=== PATIENT | female | born 1940 | race Caucasian/White ===

== ENCOUNTER 2018-07-26 13:56 | Inpatient (IN) | payer MEDICARE, MEDICAID ==
[~2018-07-26] VITALS: Ht 162.6 cm; Wt 63.0 kg
[~2018-07-26 13:56] MED LIST: ACET-868 PO; DEXT1CAP3 PO; DOCU100C36 PO; DONE10TA11 PO; FAMO-131 PO; HYDR-4384 PO; LACT1CAP7 PO; LEVO150T8 PO; MULT-213 PO; [UNRECOGNIZED DRUG - CODE] PO
--- NOTE | 2018-07-26 14:15 | NUR ---
patient [facility] [id number] from [facility] for Abnormal Labs H/H 6.3.. On room air, breathing evenly and unlabored. IV access initiated. Soft restraint ordered by MD due to patient is pulling IV line. Kept comfortable. will continue to monitor accordingly.
[2018-07-26 14:57] LABS: BASOPHILS % (AUTO) 0.6 % (0.0-2.0); EOSINOPHILS % (AUTO) 2.6 % (0.0-6.0); HEMATOCRIT 23 % (33-45); HEMOGLOBIN 7.1 g/dL (11.5-14.8); LYMPHOCYTES # (AUTO) 1.8 /CMM (0.8-4.8); MEAN CORPUSCULAR HGB CONC 31 g/dl (31.0-36.0); MEAN CORPUSCULAR VOLUME 63 fL (82-100); MONOCYTES # (AUTO) 0.7 /CMM (0.1-1.30); MONOCYTES % (AUTO) 10.5 % (2.0-12.0); NEUTROPHILS # (AUTO) 4.3 /CMM (1.8-8.9); NEUTROPHILS % (AUTO) 60.3 % (43.0-81.0); PLATELET COUNT (AUTO) 423 /CMM (150-450); RED BLOOD CELL COUNT(AUTO) 3.64 MIL/uL (4.0-5.2); WHITE BLOOD COUNT (AUTO) 7.1 K/uL (4.3-11.0)
[2018-07-26 15:10] LABS: CALCIUM, SERUM 8.3 mg/dL (8.5-10.1); CARBON DIOXIDE 27 mmol/L (21-32); CHLORIDE 107 mmol/L (98-107); GLUCOSE 123 mg/dL (74-106); POTASSIUM 3.7 mmol/L (3.5-5.1); SODIUM SERUM 141 mmol/L (136-145)
[2018-07-26 15:11] LABS: BILIRUBIN,DIRECT 0.1 mg/dL (0.0-0.2); BILIRUBIN,TOTAL 0.2 mg/dL (0.2-1.0); UREA NITROGEN, BLOOD 19 mg/dL (7-18)
[2018-07-26 15:12] LABS: ALANINE AMINOTRANSFERASE 13 U/L (12-78); ALKALINE PHOSPHATASE 56 U/L (46-116)
[2018-07-26 15:22] LABS: ASPARTATE AMINOTRANSFERASE 15 U/L (15-37); LIPASE 141 U/L (73-393); TOTAL PROTEIN, SERUM 7.9 g/dL (6.4-8.2)
[2018-07-26 16:30] LABS: BAND % (MANUAL) 1 % (0.0-5.0); EOSINOPHILS % (MANUAL) 2 % (0-4); LYMPHOCYTES % (MANUAL) 23 % (16-48); MONOCYTES % (MANUAL) 8 % (0-11.0); NEUTROPHILS % (MANUAL) 66 (42-76)
[2018-07-26 17:15] VITALS: BP 144/56
--- NOTE | 2018-07-26 17:15 | NUR ---
RN NOTES RECEIVED PT FROM ER IN ROOM 113-1, ALERT/ AGITATED AND COMBATIVE, ON RA , RESPIRATION EVEN AND UNLABORED, NO SOB NOTED, NPO AT THIS TIME R HAND IV SITE G 20 CLEAN, DRY AND INTACT, LEFT BREAST FOLD REDNESS NOTED, UNABLE TO TAKE A PICTURE DUE TO PT BEING COMBATIVE AND RESTLESS WILL ENDOSE TO TITLE INSURANCE EXAMINER NURSE FOR CONTINUITY OF CARE , SR UP X3, CALL LIGHT WITHIN EASY REACH, BED LOCKED AND IN LOWEST POSITION, CONTINUE TO MONITOR
--- NOTE | 2018-07-26 17:36 | NUR ---
report given to jai perkins for loree.
--- NOTE | 2018-07-26 17:44 | NUR ---
wheeled patient via gurney accompanied by EMT going to room 113-1 i n no apparent distress noted.
[2018-07-26 18:00] VITALS: BP 144/56
[2018-07-26] MEDS ORDERED: Z GUARD REMEDY 2 OZ OINT TP PRN (18:00)
[2018-07-26] MEDS ORDERED: ACETAMINOPHEN 325 MG TABLET PO PRN (18:00)
[2018-07-26] MEDS ORDERED: ZOLPIDEM TARTRATE 5 MG TABLET PO PRN (18:00)
[2018-07-26] MEDS ORDERED: ONDANSETRON HCL/PF 4 MG/2 ML VIAL IVP PRN (18:00)
[2018-07-26] MEDS ORDERED: HYDROCODONE/APAP 5/325MG 1 EACH TABLET PO PRN (18:00)
[2018-07-26] MEDS ORDERED: MAG HYDROX/AL HYDROX/SIMETH 30 ML UDC PO PRN (18:00)
[2018-07-26] MEDS ORDERED: MAGNESIUM HYDROXIDE 30 ML UDC PO PRN (18:00)
[2018-07-26] MEDS: IV D5/0.45 NACL 1,000 ML IV PRN (18:21)
--- NOTE | 2018-07-26 19:10 | NUR ---
MS/RN INITIAL NOTES RECEIVED PT IN BED, ALERT, APPEARS CONFUSED. ON ROOM AIR, NO SOB NOTED. WITH ONGOING IVF D5NS AT 75ML/HR INFUSING WELL ON RHAND G20 IV LINE. C/D/I. NOTED WITH RENNY SOFT WRIST RESTRAINT FOR SAFETY. SKIN INTACT AND NO COMPROMISED CIRCULATION NOTED. HOB ELEVATED. SAFETY MEASURES IN PLACED. WILL CONT TO MONITOR
[2018-07-26 20:00] VITALS: BP 138/67
[2018-07-26 20:22] LABS: IRON, SERUM 16 ug/dl (50-175); TOTAL IRON BINDING CAPACITY 309 ug/dl (250-450)
[2018-07-27 04:00] VITALS: BP 130/64
[2018-07-27 06:37] LABS: BASOPHILS % (AUTO) 0.5 % (0.0-2.0); EOSINOPHILS % (AUTO) 2.2 % (0.0-6.0); HEMATOCRIT 23 % (33-45); LYMPHOCYTES # (AUTO) 1.8 /CMM (0.8-4.8); LYMPHOCYTES % (AUTO) 29.1 % (20.0-44.0); MEAN CORPUSCULAR HGB CONC 31 g/dl (31.0-36.0); MEAN CORPUSCULAR VOLUME 64 fL (82-100); MONOCYTES # (AUTO) 0.6 /CMM (0.1-1.30); MONOCYTES % (AUTO) 9.6 % (2.0-12.0); NEUTROPHILS # (AUTO) 3.6 /CMM (1.8-8.9); NEUTROPHILS % (AUTO) 58.6 % (43.0-81.0); PLATELET COUNT (AUTO) 436 /CMM (150-450); RED BLOOD CELL COUNT(AUTO) 3.55 MIL/uL (4.0-5.2); WHITE BLOOD COUNT (AUTO) 6.1 K/uL (4.3-11.0)
[2018-07-27 06:52] LABS: CALCIUM, SERUM 8.1 mg/dL (8.5-10.1); CARBON DIOXIDE 24 mmol/L (21-32); CHLORIDE 105 mmol/L (98-107); CREATININE 0.8 mg/dL (0.6-1.3); GLUCOSE 106 mg/dL (74-106); MAGNESIUM 2.2 mg/dL (1.8-2.4); PHOSPHORUS 2.6 mg/dL (2.5-4.9); POTASSIUM 3.9 mmol/L (3.5-5.1); SODIUM SERUM 139 mmol/L (136-145); UREA NITROGEN, BLOOD 13 mg/dL (7-18)
[2018-07-27 06:58] LABS: CHOLESTEROL 123 mg/dL (<200); HDL CHOLESTEROL 41 mg/dL (40-60); LDL 78 mg/dL (0-99); THYROID STIMULATING HORMONE 1.304 uIU/mL (0.358-3.74); TRIGLYCERIDES 66 mg/dL (30-150)
--- NOTE | 2018-07-27 06:59 | NUR ---
RN NOTES PT IN STABLE CONDITION. NO ACUTE CHANGES THROUGHOUT SHIFT. NO OVERT SIGNS OF BLEEDING NOTED. ALL NEEDS ANTICIPATED. SAFETY MEASURES OBSERVED AT ALL TIMES. RECEIVED CRIT LAB H/H: 7.0/23. ENDORSED TO AM RN
--- NOTE | 2018-07-27 07:25 | NUR ---
MS RN OPENING NOTES RECEIVED PT ON BED. A/O X2, CONFUSED. ON ROOM AIR NO RESPIRATORY OR CARDIAC DISTRESS NOTED. IV ACCESS ON LEFT HAND G22 WITH D5 1/2 NS @ 75CC/HR RUNNING WELL, PATENT AND INTACT. PT ON RESTRAINS BILATERAL WRIST SOFT FOR PT SAFETY. NPO PER MD ORDER. HEAD OF BED ELEVATED, SIDE RAILS UP X4. CALL LIGHT WITHIN REACH. BED ALARM ON. WILL CONTINUE TO MONITOR PT CLOSELY.
[2018-07-27 08:00] VITALS: BP 106/67
[2018-07-27 08:38] LABS: LYMPHOCYTES % (MANUAL) 30 % (16-48); MONOCYTES % (MANUAL) 4 % (0-11.0); NEUTROPHILS % (MANUAL) 66 (42-76)
[2018-07-27] MEDS: IV D5/0.45 NACL 1,000 ML IV PRN (09:09)
[2018-07-27] MEDS: PANTOPRAZOLE 40 MG VIAL IV SCH (09:18)
[2018-07-27] MEDS ORDERED: MAGN296S44 PO (09:29)
[2018-07-27] MEDS ORDERED: DIVA125C2 PO (09:29)
[2018-07-27] MEDS ORDERED: LORA0.5T PO ×2 (09:29→09:35)
[2018-07-27] MEDS ORDERED: SERT25TA PO (09:29)
[2018-07-27] MEDS ORDERED: BISA10SU61 RC (09:29)
[2018-07-27] MEDS ORDERED: SENN-18 PO (09:29)
[2018-07-27] MEDS ORDERED: GUAI5SYR PO (09:29)
[2018-07-27] MEDS ORDERED: CHOL100062 PO (09:29)
[2018-07-27] MEDS ORDERED: ALEN70TA6 PO (09:29)
[2018-07-27] MEDS ORDERED: QUET25TA PO (09:29)
[2018-07-27] MEDS ORDERED: QUET50TA PO (09:29)
[2018-07-27] MEDS ORDERED: LEVO100T9 PO (09:29)
[2018-07-27] MEDS ORDERED: CRAN450C PO (09:29)
[2018-07-27] MEDS ORDERED: CALC-10 PO (09:29)
[2018-07-27] MEDS ORDERED: LACT1CAP89 PO (09:29)
--- NOTE | 2018-07-27 10:27 | NUR ---
WOUND CONSULT:PATIENT PRESENT ON ADMISSION REDNESS ON LT BREAST FOLD,RECOMMENDATION MADE AND DISCUSSED WITH NURSING STAFF, CURRENT ELBA SCALE 16, WILL SEE MD MARGARET IN AGREEMENT WITH PLAN OF CARE Addendum: 07/27/18 at 1033 by BRYAN WALTERS RN Amended: Links added.
[2018-07-27] MEDS ORDERED: GUAIFENESIN/D-METHORPHAN HB 5 ML UDC PO PRN (12:30)
[2018-07-27] MEDS: DIVALPROEX SODIUM 125 MG CAP.SPRINK PO SCH ×2 (13:15→17:33)
[2018-07-27] MEDS ORDERED: HALOPERIDOL LACTATE INJ 5 MG/ML VIAL IM PRN (14:00)
[2018-07-27] MEDS: SOD FERRIC GLUC 125 MG in IV NS 0.9% 100 ML IV SCH (14:56)
[2018-07-27 16:00] VITALS: BP 137/56
[2018-07-27] MEDS ORDERED: CRANBERRY FRUIT PO SCH (17:00)
[2018-07-27] MEDS: LACTOBACILLUS RHAMNOSUS GG 1 EACH CAP.SPRINK PO SCH (17:33)
[2018-07-27] MEDS: CLOTRIMAZOLE 1% 15 GM TUBE TP SCH (17:33)
[2018-07-27] MEDS: CALCIUM CARB 600MG /VIT D 1 EACH TABLET PO SCH (17:33)
[2018-07-27] MEDS: QUETIAPINE FUMARATE 25 MG TABLET PO SCH ×2 (17:33→21:02)
[2018-07-27] MEDS: LORAZEPAM 0.5 MG TABLET PO SCH ×2 (17:33→21:02)
--- NOTE | 2018-07-27 19:00 | NUR ---
MS RN NOTES PT RESTING IN BED. A/O X2, CONFUSED. ON ROOM AIR NO RESPIRATORY AND CARDIAC DISTRESS NOTED. IV ACCESS ON LEFT HAND G22 WITH D5 1/2 NS @ 75CC/HR RUNNING WELL, PATENT AND INTACT. PT ON RESTRAINS BILATERAL WRIST SOFT FOR PT SAFETY, CHECKED PT EVERY 15MINUTES. ALL MD ORDERS ATTENDED. HEAD OF BED ELEVATED, SIDE RAILS UP X4. CALL LIGHT WITHIN REACH. BED ALARM ON. ENDORSED TO TRAFFIC DIRECTOR NURSE FOR TYLER.
--- NOTE | 2018-07-27 19:26 | NUR ---
MS RN NOTES RECEIVED PT ON BED. A/O X 2, CONFUSED. ON ROOM AIR NO RESPIRATORY DISTRESS NOTED. IV ACCESS ON LEFT HAND G22 WITH D5 1/2 NS @ 75CC/HR RUNNING WELL, PATENT AND INTACT. PT ON RESTRAINS BILATERAL WRIST SOFT. HEAD OF BED ELEVATED, SIDE RAILS UP X4. CALL LIGHT WITHIN REACH. BED ALARM ON. WILL CONTINUE TO MONITOR PT CLOSELY.
[2018-07-27 20:00] VITALS: BP 107/73
[2018-07-27 20:05] VITALS: BP 107/73
--- NOTE | 2018-07-27 21:03 | NUR ---
MS RN NOTES PT REFUSING MEDS, PT CONFUSED. PO MEDS NOT GIVEN, WILL MONITOR PT CLOSELY.
[2018-07-28] MEDS: IV D5/0.45 NACL 1,000 ML IV PRN ×2 (01:53→17:15)
[2018-07-28 04:00] VITALS: BP 112/77
[2018-07-28 04:30] VITALS: BP 112/77
[2018-07-28 06:58] LABS: BASOPHILS % (AUTO) 0.5 % (0.0-2.0); EOSINOPHILS % (AUTO) 2.7 % (0.0-6.0); HEMATOCRIT 24 % (33-45); HEMOGLOBIN 7.3 g/dL (11.5-14.8); LYMPHOCYTES # (AUTO) 1.8 /CMM (0.8-4.8); LYMPHOCYTES % (AUTO) 28.7 % (20.0-44.0); MEAN CORPUSCULAR HGB CONC 31 g/dl (31.0-36.0); MEAN CORPUSCULAR VOLUME 63 fL (82-100); MONOCYTES # (AUTO) 0.5 /CMM (0.1-1.30); MONOCYTES % (AUTO) 8.9 % (2.0-12.0); NEUTROPHILS # (AUTO) 3.6 /CMM (1.8-8.9); NEUTROPHILS % (AUTO) 59.2 % (43.0-81.0); PLATELET COUNT (AUTO) 478 /CMM (150-450); RED BLOOD CELL COUNT(AUTO) 3.76 MIL/uL (4.0-5.2); WHITE BLOOD COUNT (AUTO) 6.1 K/uL (4.3-11.0)
--- NOTE | 2018-07-28 07:00 | NUR ---
MS RN INITIAL NOTES RECEIVED PT IN BED, CONFUSED. ON RA O2 SAT 97%. L HAND IV SITE #22 INTACT INFUSING D5 1/2 NS AT 75ML/HR. NO S/SX OF INFECTION NOTED. BILATERAL SOFT WRIST RESTRAINTS IN PLACE. BED IN LOCKED/LOWEST POSITION. CALL LIGHT IN REACH. WILL CONT TO MONITOR.
[2018-07-28 07:13] LABS: CALCIUM, SERUM 8.1 mg/dL (8.5-10.1); CARBON DIOXIDE 23 mmol/L (21-32); CHLORIDE 108 mmol/L (98-107); CREATININE 0.8 mg/dL (0.6-1.3); GLUCOSE 116 mg/dL (74-106); MAGNESIUM 2.3 mg/dL (1.8-2.4); PHOSPHORUS 2.8 mg/dL (2.5-4.9); POTASSIUM 3.8 mmol/L (3.5-5.1); SODIUM SERUM 142 mmol/L (136-145); UREA NITROGEN, BLOOD 9 mg/dL (7-18)
--- NOTE | 2018-07-28 07:27 | NUR ---
MS RN NOTES NO ACUTE CHANGES NOTED DURING THE SHIFT. NO AGITATION NOTED. WILL ENDORSE TO THE AM NURSE FOR CONTINUITY OF CARE.
[2018-07-28 08:00] VITALS: BP 139/76
[2018-07-28] MEDS: SERTRALINE HCL 25 MG TABLET PO SCH (08:06)
[2018-07-28] MEDS: LACTOBACILLUS RHAMNOSUS GG 1 EACH CAP.SPRINK PO SCH ×2 (08:06→16:37)
[2018-07-28] MEDS: LORAZEPAM 0.5 MG TABLET PO SCH ×3 (08:07→21:42)
[2018-07-28] MEDS: MULTIVIT W/MINERALS 1 TAB TABLET PO SCH (08:07)
[2018-07-28] MEDS: CHOLECALCIFEROL 1,000 UNIT TABLET (VIT D3) PO SCH (08:07)
[2018-07-28] MEDS: DIVALPROEX SODIUM 125 MG CAP.SPRINK PO SCH ×3 (08:07→16:37)
[2018-07-28] MEDS: QUETIAPINE FUMARATE 25 MG TABLET PO SCH ×3 (08:07→21:41)
[2018-07-28] MEDS: PANTOPRAZOLE 40 MG VIAL IV SCH (08:07)
[2018-07-28] MEDS: LEVOTHYROXINE SODIUM 100 MCG TABLET PO SCH (08:07)
[2018-07-28] MEDS: CALCIUM CARB 600MG /VIT D 1 EACH TABLET PO SCH ×2 (08:07→16:37)
[2018-07-28 08:38] LABS: EOSINOPHILS % (MANUAL) 1 % (0-4); LYMPHOCYTES % (MANUAL) 29 % (16-48); MONOCYTES % (MANUAL) 9 % (0-11.0); NEUTROPHILS % (MANUAL) 61 (42-76)
[2018-07-28] MEDS: CLOTRIMAZOLE 1% 15 GM TUBE TP SCH ×2 (08:56→16:38)
[2018-07-28] MEDS: SOD FERRIC GLUC 125 MG in IV NS 0.9% 100 ML IV SCH (14:33)
[2018-07-28 16:00] VITALS: BP 134/62
--- NOTE | 2018-07-28 18:38 | NUR ---
MS RN NOTES PT'S SON, TED, REQUESTS FOR PT TO BE TRANSFERRED TO [facility] WHEN DISCHARGED.
--- NOTE | 2018-07-28 19:00 | NUR ---
MS RN NOTES REPORTED TO PM NURSE FOR TYLER. PT IN BED, RESTING WITH NO S/SX OF DISTRESS. ALL NEEDS ATTENDED TO.
[2018-07-28 20:00] VITALS: BP 126/54
[2018-07-29] VITALS (11 sets, daily range): BP systolic 107–139; BP diastolic 51–81
--- NOTE | 2018-07-29 07:01 | NUR ---
RN CLOSING NOTES NO ACUTE CHANGES NOTED DURING THE SHIFT. NO AGITATION NOTED. WILL ENDORSE TO THE AM NURSE FOR CONTINUITY OF CARE.
[2018-07-29 07:28] LABS: BASOPHILS # (AUTO) 0.1 /CMM (0.0-0.2); BASOPHILS % (AUTO) 0.9 % (0.0-2.0); EOSINOPHILS % (AUTO) 3.2 % (0.0-6.0); HEMATOCRIT 23 % (33-45); LYMPHOCYTES # (AUTO) 1.9 /CMM (0.8-4.8); LYMPHOCYTES % (AUTO) 29.4 % (20.0-44.0); MEAN CORPUSCULAR HGB CONC 30 g/dl (31.0-36.0); MEAN CORPUSCULAR VOLUME 64 fL (82-100); MONOCYTES # (AUTO) 0.5 /CMM (0.1-1.30); NEUTROPHILS # (AUTO) 3.7 /CMM (1.8-8.9); NEUTROPHILS % (AUTO) 58.5 % (43.0-81.0); PLATELET COUNT (AUTO) 431 /CMM (150-450); WHITE BLOOD COUNT (AUTO) 6.3 K/uL (4.3-11.0)
[2018-07-29] MEDS ORDERED: ALENDRONATE 70 MG TABLET PO SCH (07:30)
[2018-07-29 07:33] LABS: HEMOGLOBIN 6.8 g/dL (11.5-14.8)
[2018-07-29 07:39] LABS: CALCIUM, SERUM 8.3 mg/dL (8.5-10.1); CARBON DIOXIDE 22 mmol/L (21-32); CHLORIDE 111 mmol/L (98-107); CREATININE 0.9 mg/dL (0.6-1.3); GLUCOSE 106 mg/dL (74-106); MAGNESIUM 2.4 mg/dL (1.8-2.4); PHOSPHORUS 3.5 mg/dL (2.5-4.9); POTASSIUM 3.4 mmol/L (3.5-5.1); SODIUM SERUM 144 mmol/L (136-145); UREA NITROGEN, BLOOD 12 mg/dL (7-18)
--- NOTE | 2018-07-29 08:15 | NUR ---
MS RN NOTES PAGED DR. MILLARD FOR PT'S ABNORMAL LAB HGB 6.8. AWAITING FOR RESPONSE.
[2018-07-29] MEDS: LEVOTHYROXINE SODIUM 100 MCG TABLET PO SCH (08:34)
[2018-07-29] MEDS: SERTRALINE HCL 25 MG TABLET PO SCH (08:45)
[2018-07-29] MEDS: PANTOPRAZOLE 40 MG VIAL IV SCH (08:45)
[2018-07-29] MEDS: DIVALPROEX SODIUM 125 MG CAP.SPRINK PO SCH ×3 (08:45→17:23)
[2018-07-29 08:47] LABS: LYMPHOCYTES % (MANUAL) 28 % (16-48); MONOCYTES % (MANUAL) 6 % (0-11.0); NEUTROPHILS % (MANUAL) 66 (42-76)
[2018-07-29] MEDS: CHOLECALCIFEROL 1,000 UNIT TABLET (VIT D3) PO SCH (08:49)
[2018-07-29] MEDS: LACTOBACILLUS RHAMNOSUS GG 1 EACH CAP.SPRINK PO SCH ×2 (08:49→17:23)
[2018-07-29] MEDS: MULTIVIT W/MINERALS 1 TAB TABLET PO SCH (08:49)
[2018-07-29] MEDS: QUETIAPINE FUMARATE 25 MG TABLET PO SCH ×3 (08:50→21:51)
[2018-07-29] MEDS: CALCIUM CARB 600MG /VIT D 1 EACH TABLET PO SCH ×2 (09:01→17:23)
[2018-07-29] MEDS: LORAZEPAM 0.5 MG TABLET PO SCH ×3 (09:02→21:50)
[2018-07-29] MEDS: CLOTRIMAZOLE 1% 15 GM TUBE TP SCH ×2 (09:03→17:23)
[2018-07-29 09:12] LABS: OCCULT BLOOD STOOL NEGATIVE (NEGATIVE)
[2018-07-29] MEDS ORDERED: POTASSIUM CHLORIDE 20 MEQ TAB.PRT.SR PO SCH ×2 (10:30→14:00)
[2018-07-29] MEDS: SOD FERRIC GLUC 125 MG in IV NS 0.9% 100 ML IV SCH (14:37)
--- NOTE | 2018-07-29 19:05 | NUR ---
RN CLOSING NOTES PT IN BED, CONFUSED. ON RA O2 SAT 97%. IV SITES INTACT INFUSING D5 1/2 NS AT 75ML/HR. NO S/SX OF INFECTION NOTED. BILATERAL SOFT WRIST RESTRAINTS IN PLACE. BED IN LOCKED/LOWEST POSITION. CALL LIGHT IN REACH. ALL MD ORDERS ATTENDED. ALL NEEDS MET. ENDORSED TO [employer] SPECIAL AGENT NURSE FOR TYLER. Addendum: 07/29/18 at 2020 by SHARON VERDIN RN TURNED AND REPOSITIONED Q2H. CHECKED PT EVERY 15 MINUTES.
--- NOTE | 2018-07-29 20:00 | NUR ---
RN/MS NOTES: RECEIVED PT. IN BED ALERT TO SELF. VERBALLY RESPONSIVE. NO FACIAL GRIMACES OR MOANING NOTED. W/ RENNY. SOFT WRIST RESTRAINTS ON. INCONTINENT OF B/B. BED ALARM ON. HAS HL G 20 PATENT AND INTACT W/ IVF GOING W/ NO S/S OF INFECTION/INFILTRATION NOTED. HAS A RT HAND G 22 PATENT AND INTACT W/ NO S/S OF INFECTION NOTED. WILL CONTINUE TO MONITOR.
[2018-07-29] MEDS: IV D5/0.45 NACL 1,000 ML IV PRN (22:46)
[2018-07-30 04:00] VITALS: BP 140/82
[2018-07-30 08:00] VITALS: BP 129/51
[2018-07-30 08:16] LABS: BASOPHILS % (AUTO) 0.4 % (0.0-2.0); EOSINOPHILS % (AUTO) 4.1 % (0.0-6.0); HEMATOCRIT 27 % (33-45); HEMOGLOBIN 8.7 g/dL (11.5-14.8); LYMPHOCYTES # (AUTO) 1.9 /CMM (0.8-4.8); LYMPHOCYTES % (AUTO) 22.7 % (20.0-44.0); MEAN CORPUSCULAR HGB CONC 32 g/dl (31.0-36.0); MEAN CORPUSCULAR VOLUME 67 fL (82-100); MONOCYTES # (AUTO) 0.5 /CMM (0.1-1.30); MONOCYTES % (AUTO) 6.4 % (2.0-12.0); NEUTROPHILS # (AUTO) 5.6 /CMM (1.8-8.9); NEUTROPHILS % (AUTO) 66.4 % (43.0-81.0); PLATELET COUNT (AUTO) 452 /CMM (150-450); RED BLOOD CELL COUNT(AUTO) 4.11 MIL/uL (4.0-5.2); WHITE BLOOD COUNT (AUTO) 8.4 K/uL (4.3-11.0)
[2018-07-30 08:27] LABS: CALCIUM, SERUM 8.6 mg/dL (8.5-10.1); CARBON DIOXIDE 19 mmol/L (21-32); CHLORIDE 112 mmol/L (98-107); CREATININE 0.8 mg/dL (0.6-1.3); GLUCOSE 95 mg/dL (74-106); MAGNESIUM 2.2 mg/dL (1.8-2.4); PHOSPHORUS 3.4 mg/dL (2.5-4.9); POTASSIUM 3.5 mmol/L (3.5-5.1); SODIUM SERUM 146 mmol/L (136-145); UREA NITROGEN, BLOOD 12 mg/dL (7-18)
[2018-07-30] MEDS: LACTOBACILLUS RHAMNOSUS GG 1 EACH CAP.SPRINK PO SCH ×2 (08:44→16:53)
[2018-07-30] MEDS: CHOLECALCIFEROL 1,000 UNIT TABLET (VIT D3) PO SCH (08:44)
[2018-07-30] MEDS: LEVOTHYROXINE SODIUM 100 MCG TABLET PO SCH (08:44)
[2018-07-30] MEDS: MULTIVIT W/MINERALS 1 TAB TABLET PO SCH (08:44)
[2018-07-30] MEDS: DIVALPROEX SODIUM 125 MG CAP.SPRINK PO SCH ×3 (08:44→16:53)
[2018-07-30] MEDS: LORAZEPAM 0.5 MG TABLET PO SCH ×3 (08:44→23:07)
[2018-07-30 08:45] LABS: BAND % (MANUAL) 2 % (0.0-5.0); EOSINOPHILS % (MANUAL) 1 % (0-4); LYMPHOCYTES % (MANUAL) 14 % (16-48); MONOCYTES % (MANUAL) 8 % (0-11.0); NEUTROPHILS % (MANUAL) 75 (42-76)
[2018-07-30] MEDS: CALCIUM CARB 600MG /VIT D 1 EACH TABLET PO SCH ×2 (08:47→16:53)
[2018-07-30] MEDS: PANTOPRAZOLE 40 MG VIAL IV SCH (08:47)
[2018-07-30] MEDS: CLOTRIMAZOLE 1% 15 GM TUBE TP SCH ×2 (08:48→16:54)
[2018-07-30] MEDS: QUETIAPINE FUMARATE 25 MG TABLET PO SCH ×4 (08:48→23:07)
[2018-07-30] MEDS: SERTRALINE HCL 25 MG TABLET PO SCH (08:48)
--- NOTE | 2018-07-30 12:25 | NUR ---
RN NOTE: RECEIVED AN ORDER FROM DR. DIXON REGARDING A PSYCH EVALUATION FOR THE PATIENT. ORDER, NOTED AND CARRIED OUT. PRIMARY NURSE TED WAS INFORMED. ORDER AND FACE SHEET WAS FAXED TO [employer] FOR THE ROUNDING PSYCHIATRIC ORDER.
[2018-07-30] MEDS: SOD FERRIC GLUC 125 MG in IV NS 0.9% 100 ML IV SCH (15:58)
[2018-07-30 16:00] VITALS: BP 139/68
[2018-07-30 16:17] VITALS: BP 139/68
--- NOTE | 2018-07-30 18:19 | NUR ---
CLOSING NO ACUTE CHANGES NOTED DURING THE SHIFT. NO AGITATION NOTED. WILL ENDORSE TO THE AM NURSE FOR CONTINUITY OF CARE. PT SEEN BY PSYCHIATRIST NEW MEDS ORDERED.
[2018-07-30 20:00] VITALS: BP 112/70
--- NOTE | 2018-07-31 01:12 | NUR ---
KAIDEN RN INITIAL NOTES: RECEIVED PT. IN BED SLEEPING EASILY AROUSAL , ALERT TO SELF. VERBALLY RESPONSIVE. NO FACIAL GRIMACES OR MOANING NOTED. W/ RENNY. SOFT WRIST RESTRAINTS ON. INCONTINENT OF B/B. BED ALARM ON.RT HAND G 22 IV LINE IS PATENT AND INTACT WITH IVF ORDERED NO S/S OF INFECTION NOTED. WILL CONTINUE TO MONITOR PATIENT CLOSELY.
[2018-07-31] MEDS: IV D5/0.45 NACL 1,000 ML IV PRN (03:28)
[2018-07-31 04:00] VITALS: BP 119/59
[2018-07-31 08:00] VITALS: BP 117/59
--- NOTE | 2018-07-31 08:00 | NUR ---
MED SURG PT- AM NOTES RECIEVED PT COMFORTABLE/CONFUSED LOC x1 , RIGHT HAND 22 GAUGE SITE CLEAR. D5 1/2 W RUNNING AT 75 ML/HR. NO S/S OF INFECTION. VITALS STABLE WILL CONTINUE TO MONITER.
[2018-07-31] MEDS: LACTOBACILLUS RHAMNOSUS GG 1 EACH CAP.SPRINK PO SCH ×2 (08:58→17:31)
[2018-07-31] MEDS: DIVALPROEX SODIUM 125 MG CAP.SPRINK PO SCH ×3 (08:58→17:31)
[2018-07-31] MEDS: LEVOTHYROXINE SODIUM 100 MCG TABLET PO SCH (08:58)
[2018-07-31] MEDS: PANTOPRAZOLE 40 MG VIAL IV SCH (08:58)
[2018-07-31] MEDS: MULTIVIT W/MINERALS 1 TAB TABLET PO SCH (08:58)
[2018-07-31] MEDS: LORAZEPAM 0.5 MG TABLET PO SCH ×2 (08:59→17:31)
[2018-07-31] MEDS: CHOLECALCIFEROL 1,000 UNIT TABLET (VIT D3) PO SCH (08:59)
[2018-07-31] MEDS: QUETIAPINE FUMARATE 25 MG TABLET PO SCH ×2 (08:59→17:31)
[2018-07-31] MEDS: CALCIUM CARB 600MG /VIT D 1 EACH TABLET PO SCH ×2 (08:59→17:31)
[2018-07-31] MEDS: CLOTRIMAZOLE 1% 15 GM TUBE TP SCH ×2 (09:00→17:32)
[2018-07-31 13:25] LABS: BASOPHILS % (AUTO) 0.5 % (0.0-2.0); EOSINOPHILS % (AUTO) 3.5 % (0.0-6.0); HEMATOCRIT 28 % (33-45); HEMOGLOBIN 8.7 g/dL (11.5-14.8); LYMPHOCYTES # (AUTO) 1.9 /CMM (0.8-4.8); LYMPHOCYTES % (AUTO) 21.5 % (20.0-44.0); MEAN CORPUSCULAR HGB CONC 31 g/dl (31.0-36.0); MEAN CORPUSCULAR VOLUME 69 fL (82-100); MONOCYTES # (AUTO) 0.7 /CMM (0.1-1.30); MONOCYTES % (AUTO) 8.2 % (2.0-12.0); NEUTROPHILS # (AUTO) 5.8 /CMM (1.8-8.9); NEUTROPHILS % (AUTO) 66.3 % (43.0-81.0); PLATELET COUNT (AUTO) 429 /CMM (150-450); RED BLOOD CELL COUNT(AUTO) 4.05 MIL/uL (4.0-5.2); WHITE BLOOD COUNT (AUTO) 8.7 K/uL (4.3-11.0)
[2018-07-31 13:30] LABS: CALCIUM, SERUM 8.3 mg/dL (8.5-10.1); CARBON DIOXIDE 20 mmol/L (21-32); CHLORIDE 110 mmol/L (98-107); CREATININE 0.9 mg/dL (0.6-1.3); GLUCOSE 113 mg/dL (74-106); POTASSIUM 3.4 mmol/L (3.5-5.1); SODIUM SERUM 139 mmol/L (136-145); UREA NITROGEN, BLOOD 13 mg/dL (7-18)
[2018-07-31 13:48] LABS: EOSINOPHILS % (MANUAL) 4 % (0-4); LYMPHOCYTES % (MANUAL) 15 % (16-48); MONOCYTES % (MANUAL) 4 % (0-11.0); NEUTROPHILS % (MANUAL) 77 (42-76)
[2018-07-31] MEDS ORDERED: PANT40TA2 PO (14:14)
[2018-07-31] MEDS ORDERED: FERR325T23 PO (14:21)
[2018-07-31] MEDS: POTASSIUM CL. PREMIX PERIPHER. 50 ML IV SCH ×2 (14:50→16:00)
[2018-07-31 16:00] VITALS: BP 114/45
[2018-07-31] MEDS: SOD FERRIC GLUC 125 MG in IV NS 0.9% 100 ML IV SCH (17:19)
--- NOTE | 2018-07-31 18:51 | NUR ---
MS1/RN REPORT TO SNF REPORT GIVEN TO CHARGE NURSE MARY BETH MTZ FOR PT TO DISCHARGE TONIGHT.
--- NOTE | 2018-07-31 19:42 | NUR ---
MS1/COST CLERK TO SNF REPORT AND DISCHARGE DOCUMENTS GIVEN TO TRANSPORT PERSONNEL. IV SITE REMOVED, PRESSURE DRESSING APPLIED, PERSONAL BELONGINGS RETURNED TO PT, INVENTORY LOG SIGNED OFF. ID BANDS REMOVED. PT LEFT MS1 UNIT VIA GURNEY IN STABLE CONDITION.
== END 2018-07-31 20:11 | DRG 811 ==
LOC: ER 13:56 → MEDSG1 16:39
PROVIDERS: ADMIT Student in an Organized Health Care Education/Training Program; ATTEND Nurse Practitioner Acute Care
PROC: 30233N1 Transfusion of Nonautologous Red Blood Cells into Peripheral Vein, Percutaneous Approach (ICD-10-PCS; principal; 2018-07-29)
DX: D50.9 Iron deficiency anemia, unspecified (principal); N17.0 Acute kidney failure with tubular necrosis; E44.0 Moderate protein-calorie malnutrition; E87.0 Hyperosmolality and hypernatremia; F02.81 Dementia in other diseases classified elsewhere, unspecified severity, with behavioral disturbance; I10 Essential (primary) hypertension; E88.09 Other disorders of plasma-protein metabolism, not elsewhere classified; D63.8 Anemia in other chronic diseases classified elsewhere; G30.9 Alzheimer's disease, unspecified; E87.6 Hypokalemia; E03.9 Hypothyroidism, unspecified; K21.9 Gastro-esophageal reflux disease without esophagitis; Z98.1 Arthrodesis status; Z68.23 Body mass index [BMI] 23.0-23.9, adult; F29 Unspecified psychosis not due to a substance or known physiological condition
CPT/HCPCS: 36415; 71045-TC; 80048-TC; 80061-TC; 80076-TC; 80164-TC; 82272-TC; 82728-TC; 83540-TC; 83690-TC; 83735-TC; 84100-TC; 84443-TC; 84484-TC; 85025-TC; 85730-TC; 86850-TC; 86921-TC; 87081-TC; C9113; G0378; J1630; J2916; J3480; J3490; J7030; J7050; P9016-BL

== ENCOUNTER 2019-03-10 17:58 | Inpatient (IN) | payer MEDICARE, MEDICAID ==
[~2019-03-10] VITALS: Ht 165.1 cm; Wt 59.4 kg
[~2019-03-10 17:58] MED LIST changes: +ALEN70TA6 PO; +BISA10SU61 RC; +CALC-10 PO; +CHOL100062 PO; +CRAN450C PO; -DEXT1CAP3 PO; +DIVA125C2 PO; -DONE10TA11 PO; -FAMO-131 PO; +FERR325T23 PO; +GUAI5SYR PO; -HYDR-4384 PO; -LACT1CAP7 PO; +LACT1CAP89 PO; +LEVO100T9 PO; -LEVO150T8 PO; +LORA0.5T PO; +MAGN296S44 PO; +PANT40TA2 PO; +QUET25TA PO; +QUET50TA PO; +SENN-18 PO; +SERT25TA PO; -[UNRECOGNIZED DRUG - CODE] PO
--- NOTE | 2019-03-10 18:15 | NUR ---
[facility] from [facility] for "general weakness and decline in functional status", PT AOX0, VERBAL, INCOHERENT, -SOB, NAD NOTED ,VSS ,PENDING MD CURRIE
[2019-03-10] MEDS ORDERED: CALC-7 PO (18:22)
[2019-03-10] MEDS ORDERED: FERR325T6 PO (18:22)
[2019-03-10] MEDS ORDERED: PANT40TA2 PO (18:22)
[2019-03-10] MEDS ORDERED: ASCO500T9 PO (18:22)
[2019-03-10] MEDS ORDERED: ONDANSETRON HCL/PF 4 MG/2 ML VIAL IVP PRN (18:30)
[2019-03-10] MEDS ORDERED: MAGNESIUM HYDROXIDE 30 ML UDC PO PRN (18:30)
[2019-03-10] MEDS ORDERED: IV NS 0.9% 500 ML BAG IV ONE (18:30)
[2019-03-10] MEDS ORDERED: ACETAMINOPHEN 325 MG TABLET PO PRN (18:30)
[2019-03-10] MEDS ORDERED: MAG HYDROX/AL HYDROX/SIMETH 30 ML UDC PO PRN (18:30)
[2019-03-10] MEDS ORDERED: HYDROCODONE/APAP 5/325MG 1 EACH TABLET PO PRN (18:30)
[2019-03-10] MEDS ORDERED: Z GUARD REMEDY 2 OZ OINT TP PRN (18:30)
--- NOTE | 2019-03-10 18:36 | NUR ---
CALLED FOR MS BED AND TURNED IN MOVE SHEET
[2019-03-10 18:44] LABS: BASOPHILS # (AUTO) 0.1 /CMM (0.0-0.2); BASOPHILS % (AUTO) 0.6 % (0.0-2.0); EOSINOPHILS % (AUTO) 2.2 % (0.0-6.0); HEMATOCRIT 37 % (33-45); LYMPHOCYTES # (AUTO) 2.8 /CMM (0.8-4.8); LYMPHOCYTES % (AUTO) 25.7 % (20.0-44.0); MEAN CORPUSCULAR HGB CONC 33 g/dl (31.0-36.0); MEAN CORPUSCULAR VOLUME 87 fL (82-100); MONOCYTES # (AUTO) 0.9 /CMM (0.1-1.30); MONOCYTES % (AUTO) 8.4 % (2.0-12.0); NEUTROPHILS % (AUTO) 63.1 % (43.0-81.0); PLATELET COUNT (AUTO) 268 /CMM (150-450); RED BLOOD CELL COUNT(AUTO) 4.19 MIL/uL (4.0-5.2); WHITE BLOOD COUNT (AUTO) 11.1 K/uL (4.3-11.0)
[2019-03-10] MEDS: CEFTRIAXONE 1 G in IV D5W 50 ML IV SCH (19:00)
--- NOTE | 2019-03-10 19:05 | NUR ---
URINE COLLECTED AND SENT TO LAB
--- NOTE | 2019-03-10 19:10 | NUR ---
ATTEMPTED TO GET EKG MULTIPLE TIMES WITH-OUT SUCCESS DUE TO PT BEING CONFUSED, AND PT CONSTANTLY MOVING ALL EXTREMITIES. INFO DR CRENSHAW, HE STATED THAT IT WAS OK.
[2019-03-10 19:20] LABS: ALANINE AMINOTRANSFERASE 18 U/L (12-78); ALBUMIN 3.8 g/dL (3.4-5.0); ALKALINE PHOSPHATASE 77 U/L (46-116); ASPARTATE AMINOTRANSFERASE 19 U/L (15-37); BILIRUBIN,TOTAL 0.2 mg/dL (0.2-1.0); CALCIUM, SERUM 9.4 mg/dL (8.5-10.1); CARBON DIOXIDE 25 mmol/L (21-32); CHLORIDE 105 mmol/L (98-107); GLUCOSE 112 mg/dL (74-106); POTASSIUM 4.5 mmol/L (3.5-5.1); SODIUM SERUM 140 mmol/L (136-145); TOTAL PROTEIN, SERUM 8.3 g/dL (6.4-8.2); UREA NITROGEN, BLOOD 26 mg/dL (7-18)
--- NOTE | 2019-03-10 19:23 | NUR ---
GOT BED 119-1
[2019-03-10 19:38] LABS: BILIRUBIN,URINE Negative (NEGATIVE); BLOOD, URINE Trace-intact Ery/uL (NEGATIVE); COLOR,URINE Yellow (YELLOW); KETONES,URINE Negative (NEGATIVE); LEUKOCYTE ESTERASE ,URINE Small (NEGATIVE); NITRITE, URINE Positive (NEGATIVE); PROTEIN,URINE Trace mg/dl (NEGATIVE); UGLUCOSE Negative (NEGATIVE); UROBILINOGEN,URINE 0.2 EU/dL (0.2)
[2019-03-10 19:41] LABS: APPEARANCE,URINE SLIGHTLY CLOUDY (CLEAR); BACTERIA,URINE Many /HPF (None Seen); WBC,URINE 81-100 /HPF (0-3)
[2019-03-10 19:42] LABS: SQUAMOUS EPITHELIAL CELL,UR Few /HPF (None Seen); URINE AMORPHOUS PHOSPHATES Few /HPF (None Seen)
--- NOTE | 2019-03-10 19:50 | NUR ---
report given to renea perkins for loree
[2019-03-10] MEDS ORDERED: CEFTRIAXONE 1GM BAG (ER ONLY) 50 ML IV ONE ×2 (20:00→20:45)
--- NOTE | 2019-03-10 20:53 | NUR ---
TRANSPORTED TO [address] [place] [address]
[2019-03-10 21:00] VITALS: BP 122/49
--- NOTE | 2019-03-10 21:00 | NUR ---
MS/RN NOTES RECEIVED FROM ER ON A GURNEY ACCOMPANIED BY ER ATTENDANT, AWAKE, CONFUSED, UNABLE TO STATE NAME AND DATE, REQUIE EXTENSIVE ASSISTANCE FOR SAFETY. BELONGINGS CHECK, SKIN CHECK WITH SKIN ISSUES. PATIENT INCONTINENT WITH DX OF UTI. ARRIVED AND WAS BROUGHT DUE TO WEAKNESS DECLINE IN FUNCTIONAL STATE. MD RUST ADMITTING MD. WITH POLST CLARIFICATION AND F/U IN AM , VITAL SIGNS CHECK AND IV FLUID INFUSING ON LEFT HAND IV. PATIENT ABLE TO MOVE AND REPOSITION WITH ASSISTANCE, SAFETY MEASURES PROVIDED BY ROOM ROUNDS AND KEPT SKIN INTACT AND DRY. MEDICATIONS REPORTED, WILL MONITOR. RESPIRATIONS EVEN AND UNLABORED. SON WITH ADVANCE DIRECTIVE,
[2019-03-10] MEDS: IV NS 0.9% 1,000 ML IV SCH (22:07)
[2019-03-11] MEDS: ACIDOPHILUS/BULGARICUS 1 EACH TAB.CHEW PO SCH ×3 (06:30→16:24)
--- NOTE | 2019-03-11 06:36 | NUR ---
MS/RN NOTES PATIENT ASLEEP, ALTERED COGNITION AND UNABLE TO FOLLOW COMMANDS, REFUSE TO TAKE MEDICATION BY MOUTH AT THIS TIME. WILL ENDORSE TO AM RN FOR TYLER. PATIENT REQUIRE MONITORING FOR SAFETY, BED ALARM ON, FALL PREVENTION, BED ALARM ON. ROUNDING. KEPT SKIN INTACT AND DRY, ON IV FLUID INFUSING FOR HYDRATION. RESPIRATIONS EVEN AND UNLABORED, UNABLE TO MAKE GOOD EYE CONTACT. BED LOCKED, CALL LIGHTS WITHIN REACH.
[2019-03-11 06:42] LABS: BASOPHILS # (AUTO) 0.1 /CMM (0.0-0.2); BASOPHILS % (AUTO) 0.8 % (0.0-2.0); EOSINOPHILS % (AUTO) 2.9 % (0.0-6.0); HEMATOCRIT 37 % (33-45); HEMOGLOBIN 12.3 g/dL (11.5-14.8); LYMPHOCYTES # (AUTO) 2.2 /CMM (0.8-4.8); LYMPHOCYTES % (AUTO) 30.1 % (20.0-44.0); MEAN CORPUSCULAR HGB CONC 33 g/dl (31.0-36.0); MEAN CORPUSCULAR VOLUME 88 fL (82-100); MONOCYTES # (AUTO) 0.6 /CMM (0.1-1.30); MONOCYTES % (AUTO) 8.2 % (2.0-12.0); NEUTROPHILS # (AUTO) 4.2 /CMM (1.8-8.9); PLATELET COUNT (AUTO) 235 /CMM (150-450); RED BLOOD CELL COUNT(AUTO) 4.19 MIL/uL (4.0-5.2); WHITE BLOOD COUNT (AUTO) 7.3 K/uL (4.3-11.0)
[2019-03-11 07:17] LABS: CALCIUM, SERUM 8.9 mg/dL (8.5-10.1); CREATININE 0.9 mg/dL (0.6-1.3); MAGNESIUM 2.2 mg/dL (1.8-2.4); PHOSPHORUS 3.5 mg/dL (2.5-4.9); POTASSIUM 4.8 mmol/L (3.5-5.1)
[2019-03-11 08:00] VITALS: BP 100/78
--- NOTE | 2019-03-11 08:00 | NUR ---
MS RN OPENING NOTES Received Patient awake and resting in bed. A/O x 1. VS stable with no acute distress. Breathing even and unlabored on room air with no respiratory distress. No signs and symptoms of pain. 20g PIV on left hand clean, intact, patent and flushing well with NS running at 75ml/hr. All needs rendered at this time. Call light within reach. Will continue to monitor.
[2019-03-11] MEDS ORDERED: CRANBERRY FRUIT PO SCH (09:00)
[2019-03-11] MEDS ORDERED: CALCIUM CARB 250MG /VITAMIN D 1 UDTAB PO SCH (09:00)
[2019-03-11] MEDS: LEVOTHYROXINE SODIUM 100 MCG TABLET PO SCH (09:19)
[2019-03-11] MEDS: LORAZEPAM 0.5 MG TABLET PO SCH ×2 (09:19→16:24)
[2019-03-11] MEDS: DOCUSATE SODIUM 100 MG CAPSULE PO SCH ×2 (09:19→16:24)
[2019-03-11] MEDS: DIVALPROEX SODIUM 125 MG CAP.SPRINK PO SCH ×3 (09:19→16:24)
[2019-03-11] MEDS: FERROUS SULFATE (325 MG) 325 MG/TAB TABLET PO SCH (09:19)
[2019-03-11] MEDS: PANTOPRAZOLE 40 MG TABLET.DR PO SCH (09:19)
[2019-03-11] MEDS: CHOLECALCIFEROL 1,000 UNIT TABLET (VIT D3) PO SCH (09:20)
[2019-03-11] MEDS: SENNOSIDES 8.6 MG TABLET PO SCH ×2 (09:20→16:24)
[2019-03-11] MEDS: QUETIAPINE FUMARATE 25 MG TABLET PO SCH ×3 (09:20→16:24)
[2019-03-11] MEDS: ASCORBIC ACID 500 MG TABLET PO SCH (09:20)
[2019-03-11] MEDS: SERTRALINE HCL 25 MG TABLET PO SCH (09:20)
[2019-03-11] MEDS: MULTIVIT W/MINERALS 1 TAB TABLET PO SCH (09:20)
[2019-03-11] MEDS: CALCIUM CARB 600MG /VIT D 1 EACH TABLET PO SCH (12:16)
[2019-03-11] MEDS: IV NS 0.9% 1,000 ML IV SCH (12:16)
[2019-03-11 16:00] VITALS: BP 120/60
--- NOTE | 2019-03-11 18:00 | NUR ---
MS RN NOTES Called Guzman Mendoza [facility] to request fax of updated POLST. Per Elo, fax machine is not working so unable to obtain updated POLST. Will endorse to oncoming shifts to follow up.
--- NOTE | 2019-03-11 18:15 | NUR ---
MS RN NOTES 20g PIV on left hand infiltrated. Removed PIV and placed warm towel on left hand. Inserted 22g PIV on right upper arm x 1 attempt. PIV clean, intact, patent and flushing well with NS running at 75ml/hr. Patient tolerated well. Will continue to monitor.
--- NOTE | 2019-03-11 18:47 | NUR ---
MS RN CLOSING NOTES Patient awake and resting in bed. A/O x 1. VS stable with no acute distress. Breathing even and unlabored on room air with no respiratory distress. No signs and symptoms of pain. 22g PIV on right upper arm clean, intact, patent and flushing well with NS running at 75ml/hr. All needs rendered at this time. Call light within reach. Will endorse plan of care to oncoming shift.
[2019-03-11] MEDS: CEFTRIAXONE 1 G in IV D5W 50 ML IV SCH (18:55)
--- NOTE | 2019-03-11 19:29 | NUR ---
MS/RN OPENING NOTES RECEIVED PATIENT IN BED, AWAKE, UNABLE TO STATE NAME, ALTERED MENTAL STATUS BUT CALM. RESPIRATIONS EVEN AND UNLABORED, NO GRIMACE OR GUARDING. SKIN WARM TO TOUCH, IV ON LEFT UPPER ARM PATENT WITH NO Z/Z OF INFILTRATION. IV INFUSING NS AT 75ML/HR. BED LOCKED, CALL LIGHTS WITHIN REACHED, RECEIVED ENDORSEMENT FROM AM RN FOR TYLER. TO F/U ON UPDATED POLST PER MD RUST ON FACILITY WITH BRITT AT [phone]. WILL MONITOR FOR ANY CHANGES.
[2019-03-11 20:00] VITALS: BP 106/50
[2019-03-12] MEDS: IV NS 0.9% 1,000 ML IV SCH (01:22)
--- NOTE | 2019-03-12 06:36 | NUR ---
MS/RN CLOSING NOTES PATIENT ABLE TO SLEEP DURING THE NIGHT, OPENS EYES , PARTICIPATIVE TO CARE BUT UNABLE TO VERBALIZE NEEDS REQUIRE EXTENSIVE ASSISTANCE. RESPIRATIONS EVEN AND UNLABORED, IV FLUID INFUSING,AND IV SITE ON LEFT UPPER ARM PATENT.BED LOCKED, CALL LIGHTSW TIHIN REACH. WILL MONITOR. WILL ENDORSE TO AM RN FOR TYLER.
--- NOTE | 2019-03-12 07:31 | NUR ---
RN OPENING NOTE PT WAS RECEIVED IN BED AT LOWEST AND LOCKED POSITION WITH SIDE RAILS UP X2, A/O X1 BREATHING EVEN AND UNLABORED ON RA WITH NO S/S OF ANY DISTRESS OR PAIN AT THIS TIME, IV IS PATENT AND INTACT, PER NIGHT RN PT IS CURRENTLY FULL CODE BUT AWAITING FOR POLST FROM CONTACT BRITT AND PER NIGHT TARYN DE LA TORRE WAS UNABLE TO BE REACHED YESTERDAY, SAFETY PRECAUTIONS IN PLACE, CALL LIGHT IN REACH, WILL MONITOR ACCORDINGLY
[2019-03-12 08:00] VITALS: BP 121/72
[2019-03-12] MEDS: MULTIVIT W/MINERALS 1 TAB TABLET PO SCH (08:51)
[2019-03-12] MEDS: LEVOTHYROXINE SODIUM 100 MCG TABLET PO SCH (08:51)
[2019-03-12] MEDS: CALCIUM CARB 600MG /VIT D 1 EACH TABLET PO SCH (08:51)
[2019-03-12] MEDS: DIVALPROEX SODIUM 125 MG CAP.SPRINK PO SCH ×3 (08:51→16:03)
[2019-03-12] MEDS: ACIDOPHILUS/BULGARICUS 1 EACH TAB.CHEW PO SCH ×2 (08:51→16:03)
[2019-03-12] MEDS: DOCUSATE SODIUM 100 MG CAPSULE PO SCH ×2 (08:51→16:03)
[2019-03-12] MEDS: PANTOPRAZOLE 40 MG TABLET.DR PO SCH (08:51)
[2019-03-12] MEDS: SENNOSIDES 8.6 MG TABLET PO SCH ×2 (08:51→16:03)
[2019-03-12] MEDS: CHOLECALCIFEROL 1,000 UNIT TABLET (VIT D3) PO SCH (08:52)
[2019-03-12] MEDS: LORAZEPAM 0.5 MG TABLET PO SCH ×2 (08:52→16:03)
[2019-03-12] MEDS: SERTRALINE HCL 25 MG TABLET PO SCH (08:52)
[2019-03-12] MEDS: ASCORBIC ACID 500 MG TABLET PO SCH (08:52)
[2019-03-12] MEDS: QUETIAPINE FUMARATE 25 MG TABLET PO SCH ×3 (08:52→16:03)
[2019-03-12] MEDS: FERROUS SULFATE (325 MG) 325 MG/TAB TABLET PO SCH (08:52)
[2019-03-12 08:58] LABS: BASOPHILS # (AUTO) 0.1 /CMM (0.0-0.2); EOSINOPHILS % (AUTO) 4.5 % (0.0-6.0); HEMATOCRIT 33 % (33-45); HEMOGLOBIN 11.2 g/dL (11.5-14.8); LYMPHOCYTES # (AUTO) 2.7 /CMM (0.8-4.8); LYMPHOCYTES % (AUTO) 30.5 % (20.0-44.0); MEAN CORPUSCULAR HGB CONC 34 g/dl (31.0-36.0); MEAN CORPUSCULAR VOLUME 87 fL (82-100); MONOCYTES # (AUTO) 0.6 /CMM (0.1-1.30); MONOCYTES % (AUTO) 6.8 % (2.0-12.0); NEUTROPHILS # (AUTO) 5.1 /CMM (1.8-8.9); NEUTROPHILS % (AUTO) 57.2 % (43.0-81.0); PLATELET COUNT (AUTO) 217 /CMM (150-450); RED BLOOD CELL COUNT(AUTO) 3.83 MIL/uL (4.0-5.2); WHITE BLOOD COUNT (AUTO) 8.9 K/uL (4.3-11.0)
--- NOTE | 2019-03-12 09:07 | NUR ---
RN NOTE CALLED [facility] AND SPOKE TO JARED REGARDING POLST NEEDING TO BE FAXED TO US, INFORMED BY JARED THAT THEIR FAX MACHINE IS CURRENTLY BROKEN AND THAT THEIR MAINTENANCE TEAM WILL BE COMING ON WEDNESDAY TO FIX IT. OUR FAX NUMBER [phone] WAS GIVEN TO JARED SO THAT POLST CAN BE SENT ONCE THEIR MACHINE IS FIXED.
[2019-03-12 09:10] LABS: CALCIUM, SERUM 8.5 mg/dL (8.5-10.1); CREATININE 0.9 mg/dL (0.6-1.3); MAGNESIUM 2.1 mg/dL (1.8-2.4); PHOSPHORUS 3.7 mg/dL (2.5-4.9); POTASSIUM 3.9 mmol/L (3.5-5.1)
[2019-03-12] MEDS ORDERED: GENTAMICIN 100 MG in IV D5W 100 ML IV ONE (10:00)
[2019-03-12] MEDS ORDERED: FEE PK DOSING 1 MIN EA MC ONE (14:03)
[2019-03-12 16:00] VITALS: BP 106/55
--- NOTE | 2019-03-12 18:22 | NUR ---
RN CLOSING NOTE PT IN BED AT LOWEST AND LOCKED POSITION WITH SIDE RAILS UP X2, A/O X1 BREATHING EVEN AND UNLABORED ON WITH NO S/S OF ANY DISTRESS OR PAIN, IV IS PATENT AND INTACT, AWAITING FOR POLST TO BE FAXED FROM [facility] TOMORROW, SAFETY PRECAUTIONS IN PLACE, CALL LIGHT IN REACH, ALL NEEDS ATTENDED TO, WILL ENDORSE TO NIGHT RN FOR TYLER.
--- NOTE | 2019-03-12 19:00 | NUR ---
MS RN OPENING NOTES Received patient, asleep, easily awaken. No s/sx of discomfort noted at this time. Kept on bed clean, dry and comfortable. Call light within easy reach. On fall and aspiration precautions. Will continue to monitor accordingly.
[2019-03-12 20:00] VITALS: BP 139/68
--- NOTE | 2019-03-13 06:40 | NUR ---
MS RN CLOSING NOTES Patient asleep, easily awaken. On RA, no SOB/respiratory distress noted. Still with confusion noted. Kept on bed clean, dry and comfortable. All nursing needs attended, no new unusualities noted. Call light within easy reach. On fall and aspiration precautions. Endorsed to the next shift.
[2019-03-13] MEDS: LEVOTHYROXINE SODIUM 100 MCG TABLET PO SCH (07:06)
[2019-03-13] MEDS: PANTOPRAZOLE 40 MG TABLET.DR PO SCH (07:06)
[2019-03-13 07:18] LABS: CALCIUM, SERUM 8.6 mg/dL (8.5-10.1); CREATININE 0.9 mg/dL (0.6-1.3); MAGNESIUM 2.1 mg/dL (1.8-2.4); PHOSPHORUS 3.1 mg/dL (2.5-4.9); POTASSIUM 3.8 mmol/L (3.5-5.1)
[2019-03-13 07:24] LABS: BASOPHILS # (AUTO) 0.1 /CMM (0.0-0.2); BASOPHILS % (AUTO) 1.1 % (0.0-2.0); EOSINOPHILS % (AUTO) 5.1 % (0.0-6.0); HEMATOCRIT 35 % (33-45); HEMOGLOBIN 11.5 g/dL (11.5-14.8); LYMPHOCYTES # (AUTO) 1.7 /CMM (0.8-4.8); LYMPHOCYTES % (AUTO) 29.2 % (20.0-44.0); MEAN CORPUSCULAR HGB CONC 33 g/dl (31.0-36.0); MEAN CORPUSCULAR VOLUME 87 fL (82-100); MONOCYTES # (AUTO) 0.4 /CMM (0.1-1.30); MONOCYTES % (AUTO) 7.5 % (2.0-12.0); NEUTROPHILS # (AUTO) 3.3 /CMM (1.8-8.9); NEUTROPHILS % (AUTO) 57.1 % (43.0-81.0); PLATELET COUNT (AUTO) 235 /CMM (150-450); RED BLOOD CELL COUNT(AUTO) 3.98 MIL/uL (4.0-5.2); WHITE BLOOD COUNT (AUTO) 5.8 K/uL (4.3-11.0)
--- NOTE | 2019-03-13 08:00 | NUR ---
MS RN NOTES PATIENT IN BED RESTING NO SOB OR ACUTE DISTRESS NOTED. PATIENT IS CONFUSED. BED IN LOW LOCKED POSITION. CALL LIGHT WITHIN REACH. PERIPHERAL IV INTACT PATIENT. WILL CONTINUE TO MONITOR.
[2019-03-13] MEDS: LORAZEPAM 0.5 MG TABLET PO SCH (08:45)
[2019-03-13] MEDS: ACIDOPHILUS/BULGARICUS 1 EACH TAB.CHEW PO SCH (08:45)
[2019-03-13] MEDS: CHOLECALCIFEROL 1,000 UNIT TABLET (VIT D3) PO SCH (08:45)
[2019-03-13] MEDS: MULTIVIT W/MINERALS 1 TAB TABLET PO SCH (08:45)
[2019-03-13] MEDS: CALCIUM CARB 600MG /VIT D 1 EACH TABLET PO SCH (08:45)
[2019-03-13] MEDS: ASCORBIC ACID 500 MG TABLET PO SCH (08:45)
[2019-03-13] MEDS: DIVALPROEX SODIUM 125 MG CAP.SPRINK PO SCH ×2 (08:45→13:57)
[2019-03-13] MEDS: DOCUSATE SODIUM 100 MG CAPSULE PO SCH (08:45)
[2019-03-13] MEDS: FERROUS SULFATE (325 MG) 325 MG/TAB TABLET PO SCH (08:45)
[2019-03-13] MEDS: QUETIAPINE FUMARATE 25 MG TABLET PO SCH ×2 (08:45→13:57)
[2019-03-13] MEDS: SENNOSIDES 8.6 MG TABLET PO SCH (08:47)
[2019-03-13] MEDS: SERTRALINE HCL 25 MG TABLET PO SCH (08:47)
[2019-03-13 09:26] VITALS: BP 103/60
--- NOTE | 2019-03-13 09:32 | NUR ---
WOUND CARE CONSULT: PT PRESENTS INCONTINENT WITH LEFT KNEE DRY SKIN LESION, PRESENT ON ADMISSION. DEFER TO MD FOR SKIN CONDITION. RECOMMENDATIONS MADE FOR SKIN PROTECTION. DISCUSSED WITH NURSING STAFF. WILL SEE PRN. CURRENT ELBA SCORE IS 15. MD IN AGREEMENT WITH PLAN OF CARE. Addendum: 03/13/19 at 0934 by JOSE A ARCEO WNDNU Amended: Links added.
[2019-03-13] MEDS ORDERED: GENTAMICIN 80 MG in IV D5W 50 ML IV SCH (10:00)
[2019-03-13] MEDS ORDERED: RXGEN XX (12:16)
--- NOTE | 2019-03-13 15:45 | NUR ---
MS RN NOTES PATIENT DISCHARGED TO [facility]. PATIENT CONFUSED UNABLE TO PROVIDE EDUCATION. EDUCATION PROVIDED TO SN AT HALFWAY FACILITY NAME ERIC. PATIENT BELONGINGS BLANKETS SENT WITH EMT. NEW PERIPHERAL IV STARTED ON LEFT FOREARM G20 WITH GOOD BLOOD FLOW. DISCHARGE PROTOCOL FOLLOWED. BELONGING LIST SIGHED BY TWO RNS. MED RECON SENT WITH PATIENT. PATIENT TO CONTINUE IV ATB FOR 5 MORE DAYS. PATIENT DISCHARGED WITH EMT VIA AMBULANCE.
[2019-03-13 16:34] VITALS: BP 136/72
== END 2019-03-13 15:45 | DRG 689 ==
LOC: ER 18:00 → MEDSG1 19:32 → MED 21:08
PROVIDERS: ADMIT Internal Medicine; ATTEND Internal Medicine
DX: N39.0 Urinary tract infection, site not specified (principal); N17.0 Acute kidney failure with tubular necrosis; G93.41 Metabolic encephalopathy; E86.0 Dehydration; F29 Unspecified psychosis not due to a substance or known physiological condition; E03.9 Hypothyroidism, unspecified; F03.90 Unspecified dementia, unspecified severity, without behavioral disturbance, psychotic disturbance, mood disturbance, and anxiety; D63.8 Anemia in other chronic diseases classified elsewhere; F41.9 Anxiety disorder, unspecified
CPT/HCPCS: 36415; 71045-TC; 80048-TC; 80076-TC; 81000-TC; 83605-TC; 83735-TC; 84100-TC; 84484-TC; 85025-TC; 87040-TC; 87081-TC; 87086-TC; 87186-TC; G0378; J0696; J1580; J7030; J7060

== ENCOUNTER 2020-10-16 19:09 | Inpatient (IN) | payer MEDICARE, OTHER ==
[~2020-10-16] VITALS: Ht 165.1 cm; Wt 66.2 kg
[~2020-10-16 19:09] MED LIST changes: -ALEN70TA6 PO; +ALEN70TA80 PO; +ASCO-352 PO; -BISA10SU61 RC; -CALC-10 PO; +CALC-7 PO; -FERR325T23 PO; +FERR325T6 PO; -GUAI5SYR PO; -MAGN296S44 PO; -QUET50TA PO; +RXGEN XX
--- NOTE | 2020-10-16 19:20 | NUR ---
pt bibpa c/o gen weakness and poor po intake x 3days. pt aaox1 at baseline, breathing evenly and unlabored. pt attached to monitor and pox. pt given blanket and call light within reach. MD at bedside for eval. will continue to monitor
[2020-10-16] MEDS ORDERED: IV NS 0.9% 500 ML BAG IV ONE (20:00)
--- NOTE | 2020-10-16 20:10 | NUR ---
blood obtained and sent to lab
--- NOTE | 2020-10-16 20:11 | NUR ---
xray at bedside
[2020-10-16 20:13] LABS: BASOPHILS # (AUTO) 0.1 K/uL (0.0-0.2); BASOPHILS % (AUTO) 0.8 % (0.0-2.0); EOSINOPHILS % (AUTO) 3.1 % (0.0-6.0); HEMATOCRIT 33 % (33-45); LYMPHOCYTES # (AUTO) 2.4 K/uL (0.8-4.8); LYMPHOCYTES % (AUTO) 28.7 % (20.0-44.0); MEAN CORPUSCULAR HGB CONC 33 g/dl (31.0-36.0); MEAN CORPUSCULAR VOLUME 79 fL (82-100); MONOCYTES # (AUTO) 0.7 K/uL (0.1-1.30); MONOCYTES % (AUTO) 8.3 % (2.0-12.0); NEUTROPHILS % (AUTO) 59.1 % (43.0-81.0); PLATELET COUNT (AUTO) 282 K/uL (150-450); RED BLOOD CELL COUNT(AUTO) 4.24 MIL/uL (4.0-5.2); WHITE BLOOD COUNT (AUTO) 8.5 K/uL (4.3-11.0)
--- NOTE | 2020-10-16 20:20 | NUR ---
covid swab sent to lab
[2020-10-16 20:22] LABS: CALCIUM, SERUM 8.6 mg/dL (8.5-10.1); CARBON DIOXIDE 25 mmol/L (21-32); CHLORIDE 104 mmol/L (98-107); CREATININE 1.4 mg/dL (0.6-1.3); GLUCOSE 200 mg/dL (74-106); POTASSIUM 4.1 mmol/L (3.5-5.1); SODIUM SERUM 138 mmol/L (136-145); UREA NITROGEN, BLOOD 25 mg/dL (7-18)
[2020-10-16 20:28] LABS: ALANINE AMINOTRANSFERASE 21 U/L (12-78); ALBUMIN 3.2 g/dL (3.4-5.0); ALKALINE PHOSPHATASE 72 U/L (46-116); ASPARTATE AMINOTRANSFERASE 14 U/L (15-37); BILIRUBIN,DIRECT 0.1 mg/dL (0.0-0.2); BILIRUBIN,TOTAL 0.1 mg/dL (0.2-1.0); TOTAL PROTEIN, SERUM 7.6 g/dL (6.4-8.2)
--- NOTE | 2020-10-16 20:28 | NUR ---
urine sent to lab
[2020-10-16 20:36] LABS: BILIRUBIN,URINE Negative (NEGATIVE); COLOR,URINE YELLOW (YELLOW); LEUKOCYTE ESTERASE ,URINE Large (NEGATIVE); NITRITE, URINE Positive (NEGATIVE); PROTEIN,URINE Trace mg/dl (NEGATIVE); UGLUCOSE Negative (NEGATIVE); UROBILINOGEN,URINE 0.2 EU/dL (0.2)
[2020-10-16 20:48] LABS: BACTERIA,URINE Many /HPF (None Seen); SQUAMOUS EPITHELIAL CELL,UR Many /HPF (None Seen); WBC,URINE 51-80 /HPF (0-3)
[2020-10-16] MEDS ORDERED: SENN-18 PO (20:48)
[2020-10-16] MEDS ORDERED: FAMO-131 PO (20:51)
[2020-10-16] MEDS ORDERED: MELA5TAB PO (20:52)
[2020-10-16] MEDS ORDERED: IV NS 0.9% 1,000 ML BAG IV ONE (21:00)
[2020-10-16] MEDS ORDERED: PIPERACILLIN /TAZOBACTAM 3.375 G in IV D5W 50 ML IV ONE (21:00)
[2020-10-16] MEDS ORDERED: VANCOMYCIN 1 GM in IV D5W 250 ML IV ONE (21:00)
[2020-10-16] MEDS ORDERED: VANCOMYCIN 1 GM VIAL ONE (21:04)
[2020-10-16] MEDS ORDERED: PIPERACILLIN /TAZOBACTAM 3.375 G VIAL IV ONE (21:04)
--- NOTE | 2020-10-16 21:29 | NUR ---
ZAHIDA SMITH ACCEPTED PT.
--- NOTE | 2020-10-16 21:52 | NUR ---
308-BED 1
[2020-10-16] MEDS ORDERED: ACETAMINOPHEN 325 MG TABLET PO PRN (22:30)
--- NOTE | 2020-10-16 22:45 | NUR ---
GAVE REPOR TO TARYN ANDREA FOR TYLER
[2020-10-16 22:50] VITALS: BP 116/75
--- NOTE | 2020-10-16 23:30 | NUR ---
DEPUTY COMMISSIONER OPENING NOTES: RECEIVED PATIENT FROM ER VIA GURNEY, NO COMPLAIN OF PAIN AND DISCOMFORT AT THIS TIME PLACE IN BED COMFORTABLY, ON TELE MONITORING WITH INITIAL READING OF SINUS RHYTHM FIRST DEGREE AV BLOCK WITH HR-[address] LOZA, PATIENT IS ASYMPTOMATIC, NO COMPLAIN OF PAIN AND DISCOMFORT, PATIENT IS A/OX1 WITH HX OF DEMENTIA UNABLE TO OBTAIN BASELINE INFORMATION, SKIN ASSESSMENT DONE, NO SKIN ISSUES WAS NOTED, NO INVENTORY ENDORSE, ORIENTED TO ROOM, PATIENT KEPT CLEAN AND DRY, PLACED IN BED COMFORTABLY WILL CONTINUE
[2020-10-17] VITALS: BP 125/54
--- NOTE | 2020-10-17 02:50 | NUR ---
RN NOTES: SPOKE TO YANY LOZA FORMATION TESTING OPERATOR DOCTOR ABOUT THE TELE MONITOR READING OF PATIENT, SINUS RHYTHM FIRST DEGREE AV BLOCK WITH PAC HR-95 AND COMPARED TO ER RESULT V/S SIGN ARE WITHIN NORMAL RANGE, TOCONTINUE TO MONITOR, PATIENT HAS NO COMPLAIN OF PAIN AND DISCOMFORT, PATIENT IS ASYMPTOMATIC, AND ORDER DIET PER YANY LOZA MECHANICAL SOFT DIET SAME DIET AT [facility].
[2020-10-17] MEDS ORDERED: ZOSYN IVPB 3.375 G in IV D5W 50ml IV SCH (03:00)
[2020-10-17] MEDS ORDERED: PIPERACILLIN /TAZOBACTAM 3.375 G VIAL IV ONE (03:39)
[2020-10-17 04:00] VITALS: BP 125/70
[2020-10-17 04:29] VITALS: BP 125/70
[2020-10-17 06:57] LABS: BASOPHILS % (AUTO) 0.6 % (0.0-2.0); EOSINOPHILS % (AUTO) 3.6 % (0.0-6.0); HEMATOCRIT 32 % (33-45); HEMOGLOBIN 10.2 g/dL (11.5-14.8); LYMPHOCYTES % (AUTO) 29.1 % (20.0-44.0); MEAN CORPUSCULAR HGB CONC 32 g/dl (31.0-36.0); MEAN CORPUSCULAR VOLUME 79 fL (82-100); MONOCYTES # (AUTO) 0.6 K/uL (0.1-1.30); MONOCYTES % (AUTO) 8.2 % (2.0-12.0); NEUTROPHILS % (AUTO) 58.5 % (43.0-81.0); PLATELET COUNT (AUTO) 266 K/uL (150-450); RED BLOOD CELL COUNT(AUTO) 3.99 MIL/uL (4.0-5.2); WHITE BLOOD COUNT (AUTO) 6.9 K/uL (4.3-11.0)
--- NOTE | 2020-10-17 07:25 | NUR ---
RN CLOSING NOTES: PATIENT SLEEP IN BED COMFORTBLY AROUSABLE TO STIMULI, BED IN LOW POSITION, CALL LIGHTS WITHIN REACH NO COMPLAIN OF PAIN AND DISCOMFORT AT THIS TIME, PATIENT KEPT CLEAN AND DRY, ALL NEEDS MET, WILL CONTINUE TO MONITOR.
[2020-10-17 07:45] LABS: ALBUMIN 2.8 g/dL (3.4-5.0); BILIRUBIN,TOTAL 0.3 mg/dL (0.2-1.0); CALCIUM, SERUM 8.2 mg/dL (8.5-10.1); MAGNESIUM 2.3 mg/dL (1.8-2.4); PHOSPHORUS 3.2 mg/dL (2.5-4.9); POTASSIUM 3.9 mmol/L (3.5-5.1); TOTAL PROTEIN, SERUM 6.7 g/dL (6.4-8.2)
--- NOTE | 2020-10-17 07:52 | NUR ---
BRIM POUNCER OPENING NOTES RECEIVED PATIENT ASLEEP, EASY TO AROUSE. ALERT AND ORIENTED X1. NO SIGNS OR SYMPTOMS OF DISTRESS NOTED. BREATHING IS EVEN AND UNLABORED. PATIENT HAS EXTERNAL TELE MONITOR WITH SINUS RHYTHM 76. IV ACCESS IN R WRIST#20 SL, PATENT AND INTACT. SAFETY MEASURES IN PLACE WITH BED AT LOW POSITION, SIDE RAILS UP X 2. CALL LIGHT IS WITHIN REACH. WILL CONTINUE TO MONITOR PATIENT THROUGHOUT SHIFT.
[2020-10-17 08:00] VITALS: BP 101/55
[2020-10-17] MEDS: LEVOTHYROXINE SODIUM 100 MCG TABLET PO SCH ×2 (08:29→08:51)
[2020-10-17] MEDS: PANTOPRAZOLE 40 MG TABLET.DR PO SCH ×2 (08:29→08:50)
[2020-10-17] MEDS: DOCUSATE SODIUM 100 MG CAPSULE PO SCH ×2 (08:50→16:17)
[2020-10-17] MEDS: CALCIUM CARB 250MG /VITAMIN D 1 UDTAB PO SCH (08:50)
[2020-10-17] MEDS: FERROUS SULFATE (325 MG) 325 MG/TAB TABLET PO SCH (08:50)
[2020-10-17] MEDS: QUETIAPINE FUMARATE 25 MG TABLET PO SCH ×3 (08:50→16:27)
[2020-10-17] MEDS: LORAZEPAM 0.5 MG TABLET PO SCH ×2 (08:50→16:19)
[2020-10-17] MEDS: CHOLECALCIFEROL 1,000 UNIT TABLET (VIT D3) PO SCH (08:50)
[2020-10-17] MEDS: SERTRALINE HCL 25 MG TABLET PO SCH (08:50)
[2020-10-17] MEDS: MULTIVITAMINS,THERAGRAN 1 UDTAB TABLET PO SCH (08:50)
[2020-10-17] MEDS: DIVALPROEX SODIUM 125 MG CAP.SPRINK PO SCH ×3 (08:50→16:17)
[2020-10-17] MEDS: SENNOSIDES 8.6 MG TABLET PO SCH ×2 (08:50→16:17)
[2020-10-17] MEDS: LACTOBACILLUS RHAMNOSUS GG 1 EACH CAP.SPRINK PO SCH ×2 (08:50→16:18)
[2020-10-17] MEDS: FAMOTIDINE (20 MG) 20 MG TABLET PO SCH (08:51)
[2020-10-17] MEDS: CEFTRIAXONE 1 G in IV D5W 50 ML IV SCH (08:56)
[2020-10-17] MEDS ORDERED: HEPARIN SODIUM, PORCINE 5000 UNITS/1 ML VIAL SQ ONE (09:00)
[2020-10-17] MEDS ORDERED: SENNOSIDES 8.6 MG TABLET PO SCH (09:00)
[2020-10-17] MEDS: ASCORBIC ACID 500 MG TABLET PO SCH (09:05)
[2020-10-17] MEDS ORDERED: PIPERACILLIN /TAZOBACTAM 2.25 G in IV D5W 50 ML IV SCH (12:00)
[2020-10-17 16:00] VITALS: BP 100/51
--- NOTE | 2020-10-17 16:19 | NUR ---
MS RN NOTES PATIENT HAS BEEN DROWSY SINCE BREAKFAST, ALTHOUGH ABLE TO AROUSE. WITHHELD ATIVAN 0.5MG SCHEDULED AT 1600. VITAL SIGNS STABLE. BREATHING IS EVEN AND UNLABORED. NO SIGNS OR SYMPTOMS OF DISTRESS NOTED.
--- NOTE | 2020-10-17 16:45 | NUR ---
MS RN CLOSING NOTES PATIENT ALERT AND ORIENTED X 1. GAVE REPORT TO TARYN CARROLL FOR CONTINUITY OF CARE.
[2020-10-17 20:00] VITALS: BP 151/88
--- NOTE | 2020-10-17 20:00 | NUR ---
RN NOTES RECEIVED PATIENT SLEEPING BUT AROUSABLE, A/OX1, NO PAIN NOTED,BED IN LOCKED POSITION, CALL LIGHT WITHIN REACH, SIDERAILSUPX2, WILL CONTINUE TO MONITOR
[2020-10-17] MEDS ORDERED: VANCOMYCIN 1 GM in IV D5W 250 ML IV SCH (21:00)
[2020-10-18] MEDS ORDERED: ALENDRONATE 70 MG TABLET PO SCH (06:00)
[2020-10-18 06:18] LABS: BASOPHILS % (AUTO) 0.8 % (0.0-2.0); EOSINOPHILS % (AUTO) 5.7 % (0.0-6.0); HEMATOCRIT 32 % (33-45); HEMOGLOBIN 10.5 g/dL (11.5-14.8); LYMPHOCYTES # (AUTO) 2.1 K/uL (0.8-4.8); LYMPHOCYTES % (AUTO) 35.4 % (20.0-44.0); MEAN CORPUSCULAR HGB CONC 33 g/dl (31.0-36.0); MEAN CORPUSCULAR VOLUME 79 fL (82-100); MONOCYTES # (AUTO) 0.4 K/uL (0.1-1.30); MONOCYTES % (AUTO) 7.5 % (2.0-12.0); NEUTROPHILS # (AUTO) 2.9 K/uL (1.8-8.9); NEUTROPHILS % (AUTO) 50.6 % (43.0-81.0); PLATELET COUNT (AUTO) 259 K/uL (150-450); RED BLOOD CELL COUNT(AUTO) 4.07 MIL/uL (4.0-5.2); WHITE BLOOD COUNT (AUTO) 5.8 K/uL (4.3-11.0)
--- NOTE | 2020-10-18 06:29 | NUR ---
RN NOTES awake, due medication was given, not in distress, no SOB< morning care rendered, siderailsupx2, pt. needs attended
--- NOTE | 2020-10-18 07:15 | NUR ---
RN NOTES PATIENT SEEN IN BED, AWAKE AND RESPONSIVE. A/O X1, REORIENTED APPLICABLE. NOT IN ACUTE DISTRESS. BREATHING EVEN AND UNLABORED, TOLERATING ROOM AIR. IV LINE ON R WRIST INTACT AND PATENT. SAFETY MEASURES IN PLACE. WILL CONTINUE TO MONITOR.
[2020-10-18 07:25] LABS: CALCIUM, SERUM 8.6 mg/dL (8.5-10.1); CREATININE 0.9 mg/dL (0.6-1.3); MAGNESIUM 2.5 mg/dL (1.8-2.4); PHOSPHORUS 3.7 mg/dL (2.5-4.9); POTASSIUM 4.1 mmol/L (3.5-5.1)
[2020-10-18] MEDS: CEFTRIAXONE 1 G in IV D5W 50 ML IV SCH (08:02)
[2020-10-18 08:49] VITALS: BP 156/66
[2020-10-18] MEDS: ASCORBIC ACID 500 MG TABLET PO SCH (09:08)
[2020-10-18] MEDS: SERTRALINE HCL 25 MG TABLET PO SCH (09:08)
[2020-10-18] MEDS: LACTOBACILLUS RHAMNOSUS GG 1 EACH CAP.SPRINK PO SCH ×2 (09:08→16:18)
[2020-10-18] MEDS: QUETIAPINE FUMARATE 25 MG TABLET PO SCH ×3 (09:08→16:18)
[2020-10-18] MEDS: CALCIUM CARB 250MG /VITAMIN D 1 UDTAB PO SCH (09:08)
[2020-10-18] MEDS: LORAZEPAM 0.5 MG TABLET PO SCH ×2 (09:08→16:18)
[2020-10-18] MEDS: FAMOTIDINE (20 MG) 20 MG TABLET PO SCH (09:08)
[2020-10-18] MEDS: SENNOSIDES 8.6 MG TABLET PO SCH ×2 (09:08→16:18)
[2020-10-18] MEDS: CHOLECALCIFEROL 1,000 UNIT TABLET (VIT D3) PO SCH (09:08)
[2020-10-18] MEDS: DOCUSATE SODIUM 100 MG CAPSULE PO SCH ×2 (09:09→16:18)
[2020-10-18] MEDS: DIVALPROEX SODIUM 125 MG CAP.SPRINK PO SCH ×3 (09:09→16:18)
[2020-10-18] MEDS: FERROUS SULFATE (325 MG) 325 MG/TAB TABLET PO SCH (09:09)
[2020-10-18] MEDS: MULTIVITAMINS,THERAGRAN 1 UDTAB TABLET PO SCH (09:09)
--- NOTE | 2020-10-18 10:00 | NUR ---
RN NOTES PATIENT SEEN BY TYE ARRIAZA, TODAY FOR PT EVAL; PER SOFIYA, PATIENT IS TOTAL ASSIST AND ONLY ABLE TO SIT AT BEDSIDE.
--- NOTE | 2020-10-18 12:30 | NUR ---
RN NOTES PATIENT SEEN TODAY BY DR. BARRAGAN.
[2020-10-18 16:18] VITALS: BP 148/60
--- NOTE | 2020-10-18 18:44 | NUR ---
RN NOTES PATIENT IN BED RESTING, AWAKE AND VERBALLY RESPONSIVE; CONTINUES ON ROOM AIR W/O RESPIRATORY DISTRESS. DUE MEDS GIVEN TODAY. REPOSITIONED TOLERATED FOR COMFORT. SAFETY MEASURES MAINTAINED. WILL ENDORSE TO BAG SEALER RN FOR TYLER.
--- NOTE | 2020-10-18 19:30 | NUR ---
MS RN OPENING NOTES RECEIVED PATIENT IN BED, AWAKE AND RESPONSIVE. A/O X1. NOT IN ACUTE DISTRESS NOTED. BREATHING EVEN AND UNLABORED, TOLERATING ROOM AIR. IV LINE ON R WRIST INTACT AND PATENT. SAFETY MEASURES IN PLACE: BED ON LOWEST LOCKED POSITION, SIDE RAILS UP X 2, CALL LIGHT WITHIN EASY REACH. WILL CONTINUE TO MONITOR PATIENT'S STATUS.
[2020-10-18 20:00] VITALS: BP 115/58
--- NOTE | 2020-10-18 23:16 | NUR ---
RN NOTES FINAL REPORT FOR URINE C&S NOTED, NOTED WITH (+) ESBL OF URINE. OBSERVED ISOLATION PROTOCOL. INFORMED ID DR. TURCIOS WITH ORDERS MADE AND CARRIED OUT.
[2020-10-18] MEDS ORDERED: MEROPENEM 500 MG VIAL IV ONE (23:34)
[2020-10-18] MEDS: MEROPENEM 500 MG in IV NS 0.9% 50 ML IV SCH (23:39)
[2020-10-19] MEDS ORDERED: MEROPENEM 500 MG VIAL IV ONE (04:41)
[2020-10-19] MEDS: MEROPENEM 500 MG in IV NS 0.9% 50 ML IV SCH (04:50)
[2020-10-19 06:07] LABS: BASOPHILS % (AUTO) 0.5 % (0.0-2.0); EOSINOPHILS % (AUTO) 4.7 % (0.0-6.0); HEMATOCRIT 33 % (33-45); HEMOGLOBIN 10.5 g/dL (11.5-14.8); LYMPHOCYTES # (AUTO) 2.1 K/uL (0.8-4.8); LYMPHOCYTES % (AUTO) 34.5 % (20.0-44.0); MEAN CORPUSCULAR HGB CONC 32 g/dl (31.0-36.0); MEAN CORPUSCULAR VOLUME 79 fL (82-100); MONOCYTES # (AUTO) 0.5 K/uL (0.1-1.30); MONOCYTES % (AUTO) 8.5 % (2.0-12.0); NEUTROPHILS # (AUTO) 3.1 K/uL (1.8-8.9); NEUTROPHILS % (AUTO) 51.8 % (43.0-81.0); PLATELET COUNT (AUTO) 276 K/uL (150-450); RED BLOOD CELL COUNT(AUTO) 4.14 MIL/uL (4.0-5.2); WHITE BLOOD COUNT (AUTO) 6.1 K/uL (4.3-11.0)
--- NOTE | 2020-10-19 06:29 | NUR ---
MS RN CLOSING NOTES PATIENT IN BED, AWAKE AND RESPONSIVE. A/O X1. NOT IN ACUTE DISTRESS NOTED. BREATHING EVEN AND UNLABORED, TOLERATING ROOM AIR. IV LINE ON R WRIST INTACT, PATENT AND FLUSHES WELL. SAFETY MEASURES OBSERVED AND MAINTAINED DURING THE SHIFT: BED ON LOWEST LOCKED POSITION, SIDE RAILS UP X 2, CALL LIGHT WITHIN EASY REACH. FREQUENT VISUAL CHECKS DONE. WILL ENDORSE TO MORNING NURSE FOR TYLER.
[2020-10-19 06:34] LABS: CALCIUM, SERUM 8.3 mg/dL (8.5-10.1); MAGNESIUM 2.2 mg/dL (1.8-2.4); PHOSPHORUS 3.4 mg/dL (2.5-4.9); POTASSIUM 3.9 mmol/L (3.5-5.1)
--- NOTE | 2020-10-19 07:25 | NUR ---
MS RN OPENING NOTES RECEIVED PATIENT IN BED AWAKE AND ALERT X1. CONFUSED AND DOESN'T RESPONDS TO VERBAL STIMULI WHEN SPOKEN TO. NO S/S OF PAIN OR ANY DISCOMFORTS OBSERVED AT THIS TIME. ON ROOM AIR, TOLERATING WELL WITH NO SOB NOTED. IV SL ON RIGHT WRIST G#20 INTACT AND PATENT, NO S/S OF INFILTRATION AT SITE NOTED. SAFETY MEASURES IN PLACE: BED IN LOWEST LOCKED POSITION W/ SR UP X2. CALL LIGHT WITHIN REACH. WILL CONTINUE TO MONITOR.
[2020-10-19 08:00] VITALS: BP 118/57
[2020-10-19] MEDS: FERROUS SULFATE (325 MG) 325 MG/TAB TABLET PO SCH (08:20)
[2020-10-19] MEDS: LORAZEPAM 0.5 MG TABLET PO SCH ×2 (08:20→16:14)
[2020-10-19] MEDS: SENNOSIDES 8.6 MG TABLET PO SCH ×2 (08:20→16:14)
[2020-10-19] MEDS: CALCIUM CARB 250MG /VITAMIN D 1 UDTAB PO SCH (08:20)
[2020-10-19] MEDS: CHOLECALCIFEROL 1,000 UNIT TABLET (VIT D3) PO SCH (08:20)
[2020-10-19] MEDS: DIVALPROEX SODIUM 125 MG CAP.SPRINK PO SCH ×3 (08:20→16:14)
[2020-10-19] MEDS: DOCUSATE SODIUM 100 MG CAPSULE PO SCH ×2 (08:20→16:14)
[2020-10-19] MEDS: QUETIAPINE FUMARATE 25 MG TABLET PO SCH ×3 (08:20→16:14)
[2020-10-19] MEDS: MULTIVITAMINS,THERAGRAN 1 UDTAB TABLET PO SCH (08:20)
[2020-10-19] MEDS: FAMOTIDINE (20 MG) 20 MG TABLET PO SCH (08:20)
[2020-10-19] MEDS: ASCORBIC ACID 500 MG TABLET PO SCH (08:20)
[2020-10-19] MEDS: PANTOPRAZOLE 40 MG TABLET.DR PO SCH (08:20)
[2020-10-19] MEDS: SERTRALINE HCL 25 MG TABLET PO SCH (08:20)
[2020-10-19] MEDS: LEVOTHYROXINE SODIUM 100 MCG TABLET PO SCH (08:22)
[2020-10-19] MEDS: LACTOBACILLUS RHAMNOSUS GG 1 EACH CAP.SPRINK PO SCH ×2 (08:22→16:14)
[2020-10-19] MEDS ORDERED: MERO500V23 IV (11:36)
[2020-10-19] MEDS ORDERED: MEROPENEM 500 MG in IV NS 0.9% 50 ML IV SCH (13:00)
[2020-10-19] MEDS ORDERED: MEROPENEM 500 MG in IV NS 0.9% 100 ML IV SCH (13:00)
[2020-10-19] MEDS ORDERED: VANCOMYCIN 1 GM in IV D5W 250 ML IV SCH (15:00)
--- NOTE | 2020-10-19 15:47 | NUR ---
RN NOTES PT FOR DISCHARGE TO [facility] THIS AFTERNOON, P/U TIME IS 1730. CALLED AND REPORT GIVEN TO XIANG BLANK AND VERBALIZED UNDERSTANDING. PER ROSAMARIA, PT WILL GO TO [facility] RM A. CONTACTED PT'S SON TED [place], NOT PICKING AND I JUST LEFT MESSAGE VIA VOICE MAIL.
--- NOTE | 2020-10-19 18:05 | NUR ---
RN DISCHARGED NOTES PT DISCHARGED TO [facility] IN STABLE CONDITION. PT IS A/O X0-1. MUMBLES INCOMPREHENSIBLE WORDS. V/S TAKEN, STABLE AND RECORDED. PT NOTED IV ACCESS ON RIGHT WRIST INFILTRATED AND WAS REMOVED, NO ACTIVE BLEEDING NOTED, DRY PRESSURE DRESSING APPLIED TO SITE. IV SITE SLIGHTLY SWOLLEN AND RED, ELEVATED WITH PILLOWS. REPORT GIVEN EARLIER TO PILL MACHINE OPERATOR MARY OF [facility]. EXIT FOLDER HANDED TO EMT'S FROM [facility]. PT LEFT UNIT AT 1800 VIA GURNEY AND IN ROOM AIR ACCOMPANIED BY 2 EMT'S FROM [facility]. CHARGE NURSE AWARE OF DISCHARGE.
[2020-10-19] MEDS ORDERED: VANC1PLA9 IV (19:10)
== END 2020-10-19 18:15 | DRG 871 ==
LOC: ER 19:11 → TELE 22:08 → MED 10-17 13:26
PROVIDERS: ADMIT Hospitalist; ATTEND Nurse Practitioner Acute Care
DX: A41.9 Sepsis, unspecified organism (principal); N17.0 Acute kidney failure with tubular necrosis; G93.41 Metabolic encephalopathy; N39.0 Urinary tract infection, site not specified; E87.2 Acidosis; M81.0 Age-related osteoporosis without current pathological fracture; F03.90 Unspecified dementia, unspecified severity, without behavioral disturbance, psychotic disturbance, mood disturbance, and anxiety; F32.9 Major depressive disorder, single episode, unspecified; Z20.822 Contact with and (suspected) exposure to COVID-19; F29 Unspecified psychosis not due to a substance or known physiological condition; Z79.83 Long term (current) use of bisphosphonates; E03.9 Hypothyroidism, unspecified; Z79.899 Other long term (current) drug therapy; K21.9 Gastro-esophageal reflux disease without esophagitis; F41.9 Anxiety disorder, unspecified; E86.1 Hypovolemia; D63.8 Anemia in other chronic diseases classified elsewhere; R62.7 Adult failure to thrive; B96.20 Unspecified Escherichia coli [E. coli] as the cause of diseases classified elsewhere; B95.5 Unspecified streptococcus as the cause of diseases classified elsewhere; M19.90 Unspecified osteoarthritis, unspecified site
CPT/HCPCS: 36415; 71045-TC; 80048-TC; 80053-TC; 80076-TC; 80202-TC; 81001; 82962-TC; 83605-TC; 83735-TC; 84100-TC; 84484-TC; 85025-TC; 85730-TC; 87040-TC; 87081-TC; 87086-TC; 87186-TC; 97112-TC; 97530-TC; C9803; G0378; J0696; J1644; J2185; J2543; J3370; J7030; J7040; J7050; J7060

== ENCOUNTER 2021-12-30 19:14 | Inpatient (IN) | payer MEDICARE, OTHER ==
[~2021-12-30] VITALS: Ht 165.1 cm; Wt 74.9 kg
[~2021-12-30 19:14] MED LIST changes: +FAMO-131 PO; +MELA5TAB PO; +MERO500V23 IV; -RXGEN XX; +VANC1PLA9 IV
[2021-12-30] MEDS ORDERED: IV NS 0.9% 1,000 ML BAG IV ONE (19:30)
--- NOTE | 2021-12-30 19:44 | NUR ---
JOSE FROM [facility] C/O MORE ALTERED THAN USUAL STARTED IN THE AFTERNOON. PER REPORT, USUALLY PT WILL RESPOND MORE VERBALLY AND CURRENTLY IS NOT. PT AWAKE AND ALERT X0, VERBAL RESPONSES ARE INCOMPREHSIBLE MOVEMENTS PURPOSEFUL. PLACED ON MONITOR AND V/S WNL.
--- NOTE | 2021-12-30 20:15 | NUR ---
CHRISTIAN COLLECTED AND SENT TO LAB
--- NOTE | 2021-12-30 20:17 | NUR ---
URINE COLLECTED AND SENT TO LAB
--- NOTE | 2021-12-30 20:20 | NUR ---
20g IV estabslished at r hand.
--- NOTE | 2021-12-30 20:24 | NUR ---
pt taken to ct via [facility]
[2021-12-30 20:27] LABS: ALANINE AMINOTRANSFERASE 26 U/L (12-78); ALBUMIN 3.6 g/dL (3.4-5.0); ALKALINE PHOSPHATASE 76 U/L (46-116); ASPARTATE AMINOTRANSFERASE 21 U/L (15-37); BILIRUBIN,DIRECT 0.1 mg/dL (0.0-0.2); BILIRUBIN,TOTAL 0.2 mg/dL (0.2-1.0); CARBON DIOXIDE 29 mmol/L (21-32); CHLORIDE 105 mmol/L (98-107); CREATININE 1.2 mg/dL (0.6-1.3); GLUCOSE 142 mg/dL (74-106); POTASSIUM 4.4 mmol/L (3.5-5.1); SODIUM SERUM 140 mmol/L (136-145); UREA NITROGEN, BLOOD 25 mg/dL (7-18)
[2021-12-30 20:28] LABS: BASOPHILS # (AUTO) 0.1 K/uL (0.0-0.2); BASOPHILS % (AUTO) 0.6 % (0.0-2.0); EOSINOPHILS % (AUTO) 3.8 % (0.0-6.0); HEMATOCRIT 33 % (33-45); HEMOGLOBIN 10.4 g/dL (11.5-14.8); LYMPHOCYTES # (AUTO) 2.1 K/uL (0.8-4.8); LYMPHOCYTES % (AUTO) 24.8 % (20.0-44.0); MEAN CORPUSCULAR HGB CONC 31 g/dl (31.0-36.0); MEAN CORPUSCULAR VOLUME 75 fL (82-100); MONOCYTES # (AUTO) 0.5 K/uL (0.1-1.30); NEUTROPHILS # (AUTO) 5.5 K/uL (1.8-8.9); NEUTROPHILS % (AUTO) 64.8 % (43.0-81.0); PLATELET COUNT (AUTO) 309 K/uL (150-450); RED BLOOD CELL COUNT(AUTO) 4.45 MIL/uL (4.0-5.2); WHITE BLOOD COUNT (AUTO) 8.5 K/uL (4.3-11.0)
[2021-12-30 21:23] LABS: BILIRUBIN,URINE NEGATIVE (NEGATIVE); COLOR,URINE YELLOW (YELLOW); LEUKOCYTE ESTERASE ,URINE LARGE (NEGATIVE); NITRITE, URINE NEGATIVE (NEGATIVE); PH,URINE 7.5 (5.0-8.0); PROTEIN,URINE 30 mg/dl (NEGATIVE); UGLUCOSE NEGATIVE (NEGATIVE); UROBILINOGEN,URINE 0.2 EU/dL (0.2)
[2021-12-30] MEDS ORDERED: CEFTRIAXONE 1GM BAG (ER ONLY) 50 ML IV ONE ×2 (22:00→22:40)
--- NOTE | 2021-12-30 22:32 | NUR ---
RM 327-2
--- NOTE | 2021-12-30 22:39 | NUR ---
REPORT GIVEN TO TARYN ELMORE.
--- NOTE | 2021-12-30 22:58 | NUR ---
PT TRANSPORTED TO ROOM 327-2 ON PATIENT MANAGER PER ACLS
[2021-12-30] MEDS ORDERED: MAG HYDROX/AL HYDROX/SIMETH 30 ML UDC PO PRN (23:00)
[2021-12-30] MEDS ORDERED: ACETAMINOPHEN 325 MG TABLET PO PRN (23:00)
[2021-12-30] MEDS ORDERED: MEROPENEM 1 G in IV NS 0.9% 100 ML IV SCH (23:00)
[2021-12-30] MEDS ORDERED: ACETAMINOPHEN 650 MG/SUPP.RECT RC PRN (23:00)
[2021-12-30] MEDS ORDERED: ONDANSETRON HCL/PF 4 MG/2 ML VIAL IVP PRN (23:00)
[2021-12-30 23:02] LABS: BACTERIA,URINE Many /HPF (None Seen); SQUAMOUS EPITHELIAL CELL,UR Few /HPF (None Seen); TRIPLE PHOSPHATE CRYSTAL,UR Few /HPF (None Seen)
[2021-12-30] MEDS: IV NS 0.9% 1,000 ML IV PRN (23:18)
--- NOTE | 2021-12-30 23:30 | NUR ---
MS CLINICAL TRANSPLANT COORDINATOR NOTES RECEIVED PATIENT FROM ER VIA [facility] WITH 2 STAFF MEMBERS. PATIENT IS AWAKE, ALERT AND ORIENTED X 2. ON OXYGEN INHALATION @ 3LPM VIA NASAL CANNULA; TOLERATING WELL. BREATHING EVEN AND NONLABORED. NO S/SX OF PAIN OR DISCOMFORT NOTED. NEEDS ANTICIPATED AND ATTENDED. BODY ASSESSMENT DONE; PICTURES TAKEN PLACED IN CHART. ORIENTED TO STAFF, UNIT AND ROOM. SAFETY MEASURES IMPLEMENTED: HOB ELEVATED, CALL LIGHT AND TABLE WITHIN REACH, SIDE RAILS UP X2, BED IN LOWEST LOCKED POSITION. WILL CONTINUE TO MONITOR.
[2021-12-31] MEDS: ENOXAPARIN SODIUM 40 MG/0.4 ML DISP.SYRIN SQ SCH ×2 (00:13→21:18)
--- NOTE | 2021-12-31 06:50 | NUR ---
MS RN CLOSING NOTES PATIENT IN BED; AWAKE, A/O X 2. ON O2 INHALATION @ 3LPM VIA NASAL CANNULA; WELL TOLERATED. RESPIRATION EVEN AND NONLABORED. WITH IV ACCESS ON RIGHT HAND 20g: PATENT AND INTACT INFUSING WITH NS 1L REGULATED @ 75 ML/HR; FLUSHES WELL. NO INFILTRATION NOTED. NO S/SX OF PAIN OR DISCOMFORT NOTED. ALL NEEDS MET. SAFETY MEASURES MAINTAINED: HOB ELEVATED, CALL LIGHT AND TABLE WITHIN REACH, SIDE RAILS UP X2, BED IN LOWEST LOCKED POSITION. ENDORSED TO MORNING SHIFT FOR TYLER.
[2021-12-31 06:58] LABS: BASOPHILS % (AUTO) 0.7 % (0.0-2.0); EOSINOPHILS % (AUTO) 5.4 % (0.0-6.0); HEMATOCRIT 30 % (33-45); HEMOGLOBIN 9.4 g/dL (11.5-14.8); LYMPHOCYTES # (AUTO) 2.2 K/uL (0.8-4.8); LYMPHOCYTES % (AUTO) 36.5 % (20.0-44.0); MEAN CORPUSCULAR HGB CONC 32 g/dl (31.0-36.0); MEAN CORPUSCULAR VOLUME 75 fL (82-100); MONOCYTES # (AUTO) 0.5 K/uL (0.1-1.30); MONOCYTES % (AUTO) 8.2 % (2.0-12.0); NEUTROPHILS % (AUTO) 49.2 % (43.0-81.0); PLATELET COUNT (AUTO) 261 K/uL (150-450); RED BLOOD CELL COUNT(AUTO) 3.98 MIL/uL (4.0-5.2); WHITE BLOOD COUNT (AUTO) 6.1 K/uL (4.3-11.0)
[2021-12-31 07:21] LABS: CALCIUM, SERUM 8.2 mg/dL (8.5-10.1); MAGNESIUM 2.2 mg/dL (1.8-2.4); PHOSPHORUS 3.8 mg/dL (2.5-4.9); POTASSIUM 4.1 mmol/L (3.5-5.1)
--- NOTE | 2021-12-31 07:26 | NUR ---
MS RN OPENING NOTE RECEIVED PT IN BED ASLEEP, EASILY AROUSED. A/O X2, REORIENTED PT NEEDED. ON O2 AT 3L/MIN VIA NASAL CANNULA, TOLERATING WELL. NO SOB NOTED. NOT IN ANY SIGN OF RESPIRATORY DISTRESS. IV ACCESS R HAND G#20 INTACT AND PATENT, WITH NS INFUSING AT 75ML/HR. SAFETY MEASURES IN PLACE: BED IN LOWEST AND LOCKED POSITION, SIDE RAILS UPX2, AND CALL LIGHT WITHIN REACH. WILL CONTINUE TO MONITOR PT.
[2021-12-31] MEDS: LEVOTHYROXINE SODIUM 100 MCG TABLET PO SCH ×2 (07:30→07:54)
[2021-12-31 07:58] LABS: THYROID STIMULATING HORMONE 2.989 uIU/mL (0.358-3.74)
[2021-12-31 08:00] VITALS: BP 165/82
[2021-12-31] MEDS: DIVALPROEX SODIUM 125 MG CAP.SPRINK PO SCH ×3 (08:29→16:27)
[2021-12-31] MEDS ORDERED: METF-440 PO (08:30)
[2021-12-31] MEDS: FERROUS SULFATE (325 MG) 325 MG/TAB TABLET PO SCH (08:30)
[2021-12-31] MEDS: SENNOSIDES 8.6 MG TABLET PO SCH ×2 (08:30→16:27)
[2021-12-31] MEDS: QUETIAPINE FUMARATE 25 MG TABLET PO SCH ×3 (08:30→16:28)
[2021-12-31] MEDS: SERTRALINE HCL 25 MG TABLET PO SCH (08:30)
[2021-12-31] MEDS ORDERED: ONDA4TAB5 PO (08:30)
[2021-12-31] MEDS: CALCIUM CARB 250MG /VITAMIN D 1 UDTAB PO SCH (08:30)
[2021-12-31] MEDS: ASCORBIC ACID 500 MG TABLET PO SCH (08:30)
[2021-12-31] MEDS ORDERED: PANTOPRAZOLE 40 MG VIAL IV SCH ×2 (09:00)
[2021-12-31] MEDS: MEROPENEM 500 MG in IV NS 0.9% 50 ML IV SCH ×2 (11:44→21:17)
[2021-12-31] MEDS: IV NS 0.9% 1,000 ML IV PRN (13:31)
[2021-12-31 16:16] VITALS: BP 136/115
--- NOTE | 2021-12-31 18:03 | NUR ---
RN NOTE PT NOTED WITH EPISODES OF COUGHING WHEN DRINKING THIN LIQUIDS. CALLED DR. ALIRIO VAIL, WITH ORDERS TO CHANGE THIN LIQUIDS TO NECTAR THICKENED AND REPEAT SWALLOW EVALUATION IN AM AND TO MAINTAIN ASPIRATION PRECAUTION.
--- NOTE | 2021-12-31 18:56 | NUR ---
MS RN CLOSING NOTE PT IN BED AWAKE. A/O X1, REORIENTED PT NEEDED. ON O2 AT 3L/MIN VIA NASAL CANNULA, TOLERATING WELL. NO SOB NOTED. NOT IN ANY SIGN OF RESPIRATORY DISTRESS. IV ACCESS R HAND G#20 INTACT AND PATENT, WITH NS INFUSING AT 75ML/HR. ALL NEEDS ATTENDED. KEPT CLEAN AND COMFORTABLE. TURNED AND REPOSITIONED Q2HRS AND NEEDED. SAFETY MEASURES IN PLACE: BED IN LOWEST AND LOCKED POSITION, SIDE RAILS UPX2, AND CALL LIGHT WITHIN REACH. 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
--- NOTE | 2021-12-31 19:30 | NUR ---
RN OPENING NOTE PATIENT IN BED, CONFUSED AT THIS TIME, NOT ORIENTED TO SELF, PLACE, PERSON, OR SITUATION. PATIENT IS ON 3LPM VIA NC AT THIS TIME. NO SOB NOTED, BREATHING EVEN AND UNLABORED, NO S/S OF RESPIRATORY DISTRESS NOTED. PATIENT HAS A R HAND 20 G WITH NS AT 75 ML/HR ONGOING, INFUSING WELL. PATIENT NOT IN ANY PAIN VIA FLACC. SAFETY MEASURES IN PLACE: BED LOCKED AND IN LOWEST POSITION, CALL LIGHT WITHIN REACH, SIDE RAILS UP. WILL MONITOR PATIENT CLOSELY.
[2021-12-31 20:00] VITALS: BP 128/51
[2021-12-31] MEDS ORDERED: CEFTRIAXONE 1 G in IV D5W 50 ML IV SCH (22:00)
[2022-01-01] MEDS: IV NS 0.9% 1,000 ML IV PRN ×2 (04:55→18:52)
[2022-01-01 06:28] LABS: BASOPHILS % (AUTO) 0.8 % (0.0-2.0); EOSINOPHILS % (AUTO) 5.5 % (0.0-6.0); HEMATOCRIT 31 % (33-45); HEMOGLOBIN 9.8 g/dL (11.5-14.8); LYMPHOCYTES # (AUTO) 2.1 K/uL (0.8-4.8); MEAN CORPUSCULAR HGB CONC 31 g/dl (31.0-36.0); MEAN CORPUSCULAR VOLUME 75 fL (82-100); MONOCYTES # (AUTO) 0.4 K/uL (0.1-1.30); MONOCYTES % (AUTO) 6.9 % (2.0-12.0); NEUTROPHILS # (AUTO) 2.7 K/uL (1.8-8.9); NEUTROPHILS % (AUTO) 48.8 % (43.0-81.0); PLATELET COUNT (AUTO) 261 K/uL (150-450); RED BLOOD CELL COUNT(AUTO) 4.21 MIL/uL (4.0-5.2); WHITE BLOOD COUNT (AUTO) 5.5 K/uL (4.3-11.0)
--- NOTE | 2022-01-01 06:45 | NUR ---
RN CLOSING NOTE PATIENT IN BED, CONFUSED AT THIS TIME, NOT ORIENTED TO SELF, PLACE, PERSON, OR SITUATION. MUMBLES INCOHERENT WORDS. PATIENT IS ON 3LPM VIA NC AT THIS TIME. NO SOB NOTED, BREATHING EVEN AND UNLABORED, NO S/S OF RESPIRATORY DISTRESS NOTED. PATIENT HAS A R HAND 20 G WITH NS AT 75 ML/HR ONGOING, INFUSING WELL. PATIENT NOT IN ANY PAIN VIA FLACC. SAFETY MEASURES IN PLACE: BED LOCKED AND IN LOWEST POSITION, CALL LIGHT WITHIN REACH, SIDE RAILS UP. ALL NEEDS MET AND ATTENDED. ALL ORDERS CARRIED OUT. WILL ENDORSE TO DAY SHIFT NURSE FOR [facility].
[2022-01-01 07:03] LABS: CALCIUM, SERUM 8.3 mg/dL (8.5-10.1); MAGNESIUM 2.2 mg/dL (1.8-2.4); PHOSPHORUS 3.2 mg/dL (2.5-4.9); POTASSIUM 3.7 mmol/L (3.5-5.1)
--- NOTE | 2022-01-01 07:27 | NUR ---
MS RN OPENING NOTE RECEIVED PT IN BED ASLEEP, EASILY AROUSED. A/O X1, CONFUSED. REORIENTED PT NEEDED. ON O2 AT 3L/MIN VIA NASAL CANNULA, TOLERATING WELL. NO SOB NOTED. NOT IN ANY SIGN OF RESPIRATORY DISTRESS. IV ACCESS R HAND G#20 INTACT AND PATENT, WITH NS INFUSING AT 75ML/HR. SAFETY MEASURES IN PLACE: BED IN LOWEST AND LOCKED POSITION, KEPT HOB ELEVATED AND ASPIRATION PRECAUTION MAINTAINED, SIDE RAILS UPX2, AND CALL LIGHT WITHIN REACH. WILL CONTINUE TO MONITOR PT.
[2022-01-01] MEDS: LEVOTHYROXINE SODIUM 100 MCG TABLET PO SCH (08:18)
[2022-01-01] MEDS: SERTRALINE HCL 25 MG TABLET PO SCH (08:37)
[2022-01-01] MEDS: CALCIUM CARB 250MG /VITAMIN D 1 UDTAB PO SCH (08:37)
[2022-01-01] MEDS: METFORMIN 500 MG TABLET PO SCH (08:37)
[2022-01-01] MEDS: ASCORBIC ACID 500 MG TABLET PO SCH (08:37)
[2022-01-01] MEDS: QUETIAPINE FUMARATE 25 MG TABLET PO SCH ×4 (08:37→16:28)
[2022-01-01] MEDS: DIVALPROEX SODIUM 125 MG CAP.SPRINK PO SCH ×4 (08:37→16:29)
[2022-01-01] MEDS: SENNOSIDES 8.6 MG TABLET PO SCH ×2 (08:37→16:28)
[2022-01-01] MEDS: MEROPENEM 500 MG in IV NS 0.9% 50 ML IV SCH ×2 (08:37→21:04)
[2022-01-01] MEDS: FERROUS SULFATE (325 MG) 325 MG/TAB TABLET PO SCH (08:38)
[2022-01-01] MEDS: PANTOPRAZOLE 40 MG/PACK PACK PO SCH (08:40)
--- NOTE | 2022-01-01 19:19 | NUR ---
MS RN CLOSING NOTE PT IN BED ASLEEP, EASILY AROUSED. A/O X1, CONFUSED. REORIENTED PT NEEDED. ON O2 AT 3L/MIN VIA NASAL CANNULA, TOLERATING WELL. NO SOB NOTED. NOT IN ANY SIGN OF RESPIRATORY DISTRESS. IV ACCESS RAC G#22 INTACT AND PATENT, WITH NS INFUSING AT 75ML/HR. ALL NEEDS ATTENDED. KEPT CLEAN AND COMFORTABLE. TURNED AND REPOSITIONED PT Q2HRS AND NEEDED. SAFETY MEASURES IN PLACE: BED IN LOWEST AND LOCKED POSITION, BED ALARM ON, KEPT HOB ELEVATED AND ASPIRATION PRECAUTION MAINTAINED, SIDE RAILS UPX3, AND CALL LIGHT WITHIN REACH. ENDORSED TO STEAM AND GAS TURBINE ASSEMBLER NURSE FOR [facility].
--- NOTE | 2022-01-01 19:30 | NUR ---
RN OPENING NOTE PATIENT IN BED, CONFUSED AT THIS TIME, NOT ORIENTED TO SELF, PLACE, PERSON, OR SITUATION. PATIENT IS ON 3LPM VIA NC AT THIS TIME. NO SOB NOTED, BREATHING EVEN AND UNLABORED, NO S/S OF RESPIRATORY DISTRESS NOTED. PATIENT HAS A R AC 22 G WITH NS AT 75 ML/HR ONGOING, INFUSING WELL. PATIENT NOT IN ANY PAIN VIA FLACC. SAFETY MEASURES IN PLACE: BED LOCKED AND IN LOWEST POSITION, CALL LIGHT WITHIN REACH, SIDE RAILS UP. WILL MONITOR PATIENT CLOSELY.
[2022-01-01 20:00] VITALS: BP 114/66
--- NOTE | 2022-01-01 20:00 | NUR ---
RN NOTE PATIENT'S ARM SWOLLEN AND RED, ELEVATED AND APPLIED ICE PACK. IV ACCESS REMOVED D/T INFILTRATION. WILL INSERT NEW IV ACCESS.
[2022-01-01] MEDS: ENOXAPARIN SODIUM 40 MG/0.4 ML DISP.SYRIN SQ SCH (21:06)
[2022-01-02] MEDS: IV NS 0.9% 1,000 ML IV PRN (05:44)
[2022-01-02] MEDS ORDERED: ALENDRONATE 70 MG TABLET PO SCH (06:00)
[2022-01-02 06:51] LABS: BASOPHILS % (AUTO) 0.6 % (0.0-2.0); EOSINOPHILS % (AUTO) 4.8 % (0.0-6.0); HEMATOCRIT 30 % (33-45); HEMOGLOBIN 9.6 g/dL (11.5-14.8); LYMPHOCYTES % (AUTO) 34.4 % (20.0-44.0); MEAN CORPUSCULAR HGB CONC 32 g/dl (31.0-36.0); MEAN CORPUSCULAR VOLUME 75 fL (82-100); MONOCYTES # (AUTO) 0.5 K/uL (0.1-1.30); MONOCYTES % (AUTO) 8.4 % (2.0-12.0); NEUTROPHILS % (AUTO) 51.8 % (43.0-81.0); PLATELET COUNT (AUTO) 242 K/uL (150-450); RED BLOOD CELL COUNT(AUTO) 4.02 MIL/uL (4.0-5.2); WHITE BLOOD COUNT (AUTO) 5.9 K/uL (4.3-11.0)
[2022-01-02 07:08] LABS: CALCIUM, SERUM 8.3 mg/dL (8.5-10.1); MAGNESIUM 2.1 mg/dL (1.8-2.4); PHOSPHORUS 2.9 mg/dL (2.5-4.9); POTASSIUM 3.7 mmol/L (3.5-5.1)
--- NOTE | 2022-01-02 07:25 | NUR ---
RN CLOSING NOTE PATIENT IN BED, CONFUSED. PATIENT STABLE ON 3 LPM VIA NC. NOT IN ANY APPARENT DISTRESS. SAFETY MEASURES IMPLEMENTED. ALL NEEDS MET AND ATTENDED. ALL ORDERS CARRIED OUT. ENDORSED TO DAY SHIFT NURSE FOR [facility].
[2022-01-02 08:23] VITALS: BP 104/66
[2022-01-02] MEDS: QUETIAPINE FUMARATE 25 MG TABLET PO SCH (09:50)
[2022-01-02] MEDS: ASCORBIC ACID 500 MG TABLET PO SCH (09:50)
[2022-01-02] MEDS: SERTRALINE HCL 25 MG TABLET PO SCH (09:50)
[2022-01-02] MEDS: DIVALPROEX SODIUM 125 MG CAP.SPRINK PO SCH (09:50)
[2022-01-02] MEDS: PANTOPRAZOLE 40 MG/PACK PACK PO SCH (09:50)
[2022-01-02] MEDS: METFORMIN 500 MG TABLET PO SCH (09:50)
[2022-01-02] MEDS: LEVOTHYROXINE SODIUM 100 MCG TABLET PO SCH (09:51)
[2022-01-02] MEDS: FERROUS SULFATE (325 MG) 325 MG/TAB TABLET PO SCH (09:51)
[2022-01-02] MEDS: SENNOSIDES 8.6 MG TABLET PO SCH (09:51)
[2022-01-02] MEDS: CALCIUM CARB 250MG /VITAMIN D 1 UDTAB PO SCH (09:51)
[2022-01-02] MEDS: MEROPENEM 500 MG in IV NS 0.9% 50 ML IV SCH (09:56)
--- NOTE | 2022-01-02 11:41 | NUR ---
WOUND CARE CONSULT: PT PRESENTS WITH FRAGILE SKIN AND INCONTINENCE, PRESENT ON ADMISSION. RECOMMENDATIONS MADE FOR SKIN PROTECTION. DISCUSSED WITH NURSING STAFF. MD IN AGREEMENT WITH PLAN OF CARE.
--- NOTE | 2022-01-02 15:00 | NUR ---
KNIFE GRINDER NOTE PATIENT DISCHARGED FORM FACILITY @ 1450 VIA GURNEY AND ACCOMPANIED BY AMBULANCE. WILL BE TRANSFERRED TO [facility] ROOM 207-B. REPORT GIVEN TO TARYN PATTON. IV ACCESS TO LFA LEFT INTACT PATIENT WILL CONTINUE ON IV ANTIBIOTICS X7DAYS. RECEIVING NURSE INFORMED. PATIENT REMAINED ON SUPPLEMENTAL OXYGEN @ 3LPM UPON DISCHARGE. NO BELONGINGS AT BEDSIDE UPON LEAVE. PATIENT TOLERATED ALL CARE AND MEDICATIONS GIVEN. NO ADVERSE REACTIONS TO ANTIBIOTIC OBSERVED. TOLERATED WELL
== END 2022-01-02 14:45 | DRG 682 ==
LOC: ER 19:54 → TELE 22:36 → MED 23:20
PROVIDERS: ADMIT Nurse Practitioner Acute Care; ATTEND Nurse Practitioner Acute Care
DX: N17.0 Acute kidney failure with tubular necrosis (principal); G93.41 Metabolic encephalopathy; N39.0 Urinary tract infection, site not specified; E44.0 Moderate protein-calorie malnutrition; F03.91 Unspecified dementia, unspecified severity, with behavioral disturbance; J98.11 Atelectasis; E86.0 Dehydration; K21.9 Gastro-esophageal reflux disease without esophagitis; Z20.822 Contact with and (suspected) exposure to COVID-19; Z66 Do not resuscitate; M19.90 Unspecified osteoarthritis, unspecified site; M81.0 Age-related osteoporosis without current pathological fracture; F29 Unspecified psychosis not due to a substance or known physiological condition; E03.9 Hypothyroidism, unspecified; Z79.83 Long term (current) use of bisphosphonates; Z79.899 Other long term (current) drug therapy; E88.09 Other disorders of plasma-protein metabolism, not elsewhere classified; B96.89 Other specified bacterial agents as the cause of diseases classified elsewhere; D50.9 Iron deficiency anemia, unspecified; F25.9 Schizoaffective disorder, unspecified; F32.A Depression, unspecified; I51.7 Cardiomegaly; K44.9 Diaphragmatic hernia without obstruction or gangrene; Z87.440 Personal history of urinary (tract) infections; B95.4 Other streptococcus as the cause of diseases classified elsewhere
CPT/HCPCS: 36415; 70450-TC; 71045-TC; 80048-TC; 80061-TC; 80076-TC; 81001; 83605-TC; 83735-TC; 84100-TC; 84439-TC; 84443-TC; 84484-TC; 85025-TC; 85730-TC; 87040-TC; 87081-TC; 87086-TC; 87186-TC; 92526; 92611-TC; 94799-TC; 97112-TC; 97530-TC; C9113; C9803; G0378; J0696; J1650; J2185; J7030; J7060